=== PATIENT | female | born 1935 | race Caucasian/White ===

== ENCOUNTER 2016-10-30 11:37 | Inpatient (IN) | payer MEDICARE, OTHER ==
[~2016-10-30] VITALS: Ht 165.1 cm; Wt 90.7 kg
--- NOTE | 2016-10-30 12:00 | ED Fall/Injury ---
General Stated Complaint: FALL Source: patient, family Exam Limitations: no limitations History of Present Illness Time seen by provider: 11:56 Initial Comments Brought to ER by family after they found her on her floor in her apartment this morning at about 1030. Reportedly, she also fell last night and sustained an abrasion to the right elbow which was dressed by nurses on staff. She has advanced Alzheimer's and does not remember falling or recent injuries and states that she feels well. Family reports that she has been increasingly weak over the past few weeks. They also report that she's had 3 bottles of water this morning which is very unusual for her. She denies pain. Occurred: yesterday Severity: moderate Injuries/Pain Location: upper extremity Context: unknown Loss of Consciousness: unsure Associated Symptoms (Fall): No Abdominal Pain, No Chest Pain, No Dizziness, No Headache, No Nausea/Vomiting, No Neck Pain Allergies and Home Medications Allergies Coded Allergies: No Allergy Information Available (Unverified , 10/30/16) Home Medications Unable to Obtain Active Prescriptions or Reported Meds Constitutional: see HPI weakness Eyes: No Symptoms Reported Ears, Nose, Mouth, Throat: no symptoms reported Respiratory: no symptoms reported Cardiovascular: no symptoms reported Genitourinary: no symptoms reported Musculoskeletal: no symptoms reported Skin: no symptoms reported Past Qkydmui-Ekohdn-Nuvedd Hx Patient Social History Recent Foreign Travel: No Contact w/Someone Who Travel: No Physical Exam Vital Signs Vital Sign - Last 12Hours Capillary Refill : General Appearance: WD/WN no apparent distress HEENT: PERRL/EOMI normal ENT inspection Neck: non-tender full range of motion Cardiovascular: regular rate, rhythm no murmur Respiratory: lungs clear normal breath sounds no respiratory distress no accessory muscle use Gastrointestinal: normal bowel sounds non tender soft Extremities: normal range of motion non-tender no pedal edema pelvis stable Neurologic/Psychiatric: alert normal mood/affect oriented x 3 Skin: normal color warm/dry Fito Coma Score Best Eye Response: (4) Open Spontaneously Best Verbal Response: (4) Confused Conversation Best Motor Response: (6) Obeys Commands Fito Total: 14 Progress/Results/Core Measures Results/Orders Lab Results Laboratory Tests Test 10/30/16 11:51 Range/Units Alanine Aminotransferase (ALT/SGPT) 25 0-55 U/L Albumin 4.2 3.2-4.5 G/DL Alkaline Phosphatase 65 40-136 U/L Anion Gap 21 H 5-14 MMOL/L Aspartate Amino Transf (AST/SGOT) 52 H 5-34 U/L BUN/Creatinine Ratio 23 Basophils # (Auto) 0.0 0.0-0.1 10^3/uL Basophils (%) (Auto) 0 0-10 % Blood Morphology Comment NORMAL Blood Urea Nitrogen 25 H 7-18 MG/DL Calcium Level 9.4 8.5-10.1 MG/DL Carbon Dioxide Level 17 L 21-32 MMOL/L Chloride Level 99 98-107 MMOL/L Creatinine 1.08 0.60-1.30 MG/DL Eosinophils # (Auto) 0.0 0.0-0.3 10^3/uL Eosinophils (%) (Auto) 0 0-10 % Estimat Glomerular Filtration Rate 49 Glucose Level 309 H 70-105 MG/DL Hematocrit 46 35-52 % Hemoglobin 15.4 11.5-16.0 G/DL INR Comment 1.1 0.8-1.4 Lymphocytes # (Auto) 0.5 L 1.0-4.0 X 10^3 Lymphocytes % (Manual) 4 % Lymphocytes (%) (Auto) 4 L 12-44 % Mean Corpuscular Hemoglobin 29 25-34 PG Mean Corpuscular Hemoglobin Concent 34 32-36 G/DL Mean Corpuscular Volume 87 80-99 FL Mean Platelet Volume 9.7 7.4-10.4 FL Monocytes # (Auto) 1.0 0.0-1.0 X 10^3 Monocytes % (Manual) 7 % Monocytes (%) (Auto) 9 0-12 % Myoglobin 3056.1 H 10.0-92.0 NG/ML Neutrophils # (Auto) 9.9 H 1.8-7.8 X 10^3 Neutrophils % (Manual) 89 % Neutrophils (%) (Auto) 87 H 42-75 % Platelet Count 218 130-400 10^3/uL Potassium Level 4.3 3.6-5.0 MMOL/L Prothrombin Time 13.6 12.2-14.7 SEC Red Blood Count 5.23 4.35-5.85 10^6/uL Red Cell Distribution Width 13.9 10.0-14.5 % Sodium Level 137 135-145 MMOL/L Total Bilirubin 0.5 0.1-1.0 MG/DL Total Creatine Kinase 1605 H 29-168 U/L Total Protein 7.3 6.4-8.2 G/DL Urine Bacteria NEGATIVE /HPF Urine Bilirubin NEGATIVE NEGATIVE Urine Casts NONE /LPF Urine Clarity CLEAR Urine Color YELLOW Urine Crystals NONE /LPF Urine Culture Indicated NO Urine Glucose (UA) 4+ H NEGATIVE Urine Ketones 4+ H NEGATIVE Urine Leukocyte Esterase NEGATIVE NEGATIVE Urine Mucus NEGATIVE /LPF Urine Nitrite NEGATIVE NEGATIVE Urine Protein 3+ H NEGATIVE Urine RBC NONE /HPF Urine RBC (Auto) 5+ H NEGATIVE Urine Specific [place] 1.020 1.016-1.022 Urine Squamous Epithelial Cells 2-5 /HPF Urine Urobilinogen NORMAL NORMAL MG/DL Urine WBC NONE /HPF Urine pH 5 5-9 Valproic Acid (Depakene) Level 11.2 L 50.0-100.0 UG/ML White Blood Count 11.4 H 4.3-11.0 10^3/uL My Orders Orders-JAJA MAURICIO FRAMING SPECIALIST Cbc With Automated Diff (10/30/16 11:44) Comprehensive Metabolic Panel (10/30/16 11:44) Ua Culture If Indicated (10/30/16 11:44) Saline Lock/Iv-Start (10/30/16 11:56) Ct Head/Cervical Spine Wo (10/30/16 11:56) Chest Pa/Lat (2 View) (10/30/16 11:56) Protime With Inr (10/30/16 11:56) Creatine Kinase (10/30/16 12:00) Myoglobin Serum (10/30/16 12:00) Valproic Acid (10/30/16 12:01) Manual Differential (10/30/16 11:51) Ns Iv 500 Ml (Sodium Chloride 0.9%) (10/30/16 12:45) Insulin (Regular) Human (Humulin R (Per (10/30/16 12:45) Vital Signs/I&O Vital Sign - Last 12Hours 10/30/16 10/30/16 11:51 11:51 Temp 98.1 98.1 Pulse 92 91 Resp 18 18 B/P 132/114 132/114 Pulse Ox 94 94 Diagnostic Imaging Diagonstic Imaging: Xray Plain Films/CT/US/NM/MRI: chest Comments NAME: RAMOSCARL J MED REC#: [id number] PT STATUS: REG ER : 1935 PHYSICIAN: JAJA MAURICIO APRN ADMIT DATE: 10/30/16/ER Draft Date of Exam:10/30/16 CHEST PA/LAT (2 VIEW) INDICATION: Fall, assisted living facility. EXAMINATION: Two-view chest 10/30/2016. COMPARISON: None. FINDINGS: There are no infiltrates or effusions. Heart is unremarkable. Pulmonary vasculature is normal in appearance. IMPRESSION: 1. No acute process. Dictated on workstation # [id number] Dict: 10/30/16 1246 Trans: 10/30/16 1252 KB [id number] Interpreted by: LONNIE CMFARLAND MD Electronically signed by: NAME: CARL BEASLEY REC#: [id number] PT STATUS: REG ER : 1935 PHYSICIAN: JAJA MAURICIO APRN ADMIT DATE: 10/30/16/ER Draft Date of Exam:10/30/16 CT HEAD/CERVICAL SPINE WO PROCEDURE: CT head and CT cervical spine without contrast. TECHNIQUE: Multiple contiguous axial images were obtained through the brain and cervical spine without the use of intravenous contrast. Sagittal and coronal reformations through the cervical spine were then performed. INDICATION: Unsure if hit head, recent fall. Assisted living facility. EXAMINATION: CT brain/ CT cervical spine 10/30/2016. Correlation made with CT brain dated 04/02/2015. FINDINGS: Brain: Chronic ischemic changes are seen in a periventricular distribution and throughout the deep white matter. There is mild atrophy. 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 No definite hemorrhage, infarct, mass, mass effect, or midline shift is appreciated. No depressed or displaced calvarial fractures are seen. Mucosal thickening is seen in the sinuses with no acute sinus disease appreciated. IMPRESSION: Chronic change with no acute intracranial process appreciated. CT cervical spine: There is normal height and alignment of the vertebral bodies with intervertebral disc space narrowing and posterior as well as anterior spurring throughout the spine. Bilateral facet hypertrophy is also noted throughout the cervical spine. No acute fractures appreciated. Lung apices are clear. Visualized soft tissues demonstrate prominence and lobularity of the thyroid which should be further characterized sonographically on a nonemergent basis. IMPRESSION: 1. Degenerative findings throughout the cervical spine with no fracture seen. 2. Prominent thyroid gland. See above recommendation. Dictated on workstation # [id number] Dict: 10/30/16 1250 Trans: 10/30/16 1300 [id number] Interpreted by: LONNIE MCFARLAND MD Electronically signed by: Departure Communication Time/Spoke to Admitting Phy: 13:[address] Bourgeois who is on-call for Dr. Reddy. We will admit the patient for IV fluids, repeat labs. Impression Impression: Primary Impression: Rhabdomyolysis Qualified Code: T79.6XXA - Traumatic ischemia of muscle, initial encounter Additional Impressions: Fall Qualified Code: W19.XXXA - Unspecified fall, initial encounter Hyperglycemia Disposition: ADMITTED INPATIENT Condition: Critical Decision to Admit Reason: Admit from ER (General) Decision to Admit/Date: Oct 30, 2016 Time/Decision to Admit Time: 12:46 Departure-Patient Inst. Referrals: MANUEL REDDY MD (PCP/Family) Primary Care Physician Scripts Unable to Obtain Active Prescriptions or Reported Meds JAJA MAURICIO APRN Oct 30, 2016 12:00
[2016-10-30 12:20] LABS: BASOPHILS % (AUTO) 0 % (0-10); EOSINOPHILS % (AUTO) 0 % (0-10); LYMPHOCYTES # (AUTO) 0.5 X 10^3 (1.0-4.0); LYMPHOCYTES % (AUTO) 4 % (12-44); MEAN CORPUSCULAR HEMOGLOBIN 29 PG (25-34); MEAN CORPUSCULAR HGB CONC 34 G/DL (32-36); MEAN CORPUSCULAR VOLUME 87 FL (80-99); MEAN PLATELET VOLUME 9.7 FL (7.4-10.4); MONOCYTES % (AUTO) 9 % (0-12); NEUTROPHILS # (AUTO) 9.9 X 10^3 (1.8-7.8); NEUTROPHILS % (AUTO) 87 % (42-75); PLATELET COUNT 218 10^3/uL (130-400); RED BLOOD COUNT 5.23 10^6/uL (4.35-5.85); RED CELL DISTRIBUTION WIDTH 13.9 % (10.0-14.5); WHITE BLOOD COUNT 11.4 10^3/uL (4.3-11.0)
[2016-10-30 12:21] LABS: BILIRUBIN,URINE NEGATIVE (NEGATIVE); KETONES,URINE 4+ (NEGATIVE); LEUKOCYTE ESTERASE ,URINE NEGATIVE (NEGATIVE); NITRITE,URINE NEGATIVE (NEGATIVE); PH,URINE 5 (5-9); PROTEIN,URINE 3+ (NEGATIVE); UROBILINOGEN,URINE NORMAL (NORMAL)
[2016-10-30 12:29] LABS: INR 1.1 (0.8-1.4); PROTHROMBIN TIME PATIENT 13.6 SEC (12.2-14.7)
[2016-10-30 12:37] LABS: LYMPHOCYTES % (MANUAL) 4 %; NEUTROPHILS % (MANUAL) 89 %
[2016-10-30 12:38] LABS: ALBUMIN 4.2 G/DL (3.2-4.5); BILIRUBIN,TOTAL 0.5 MG/DL (0.1-1.0); CALCIUM 9.4 MG/DL (8.5-10.1); CREATININE SERUM 1.08 MG/DL (0.60-1.30); POTASSIUM 4.3 MMOL/L (3.6-5.0); TOTAL PROTEIN 7.3 G/DL (6.4-8.2)
[2016-10-30] MEDS ORDERED: NS IV 500 ML 500 ML IV SCH (12:45)
[2016-10-30] MEDS ORDERED: inSUlin (REGULAR) HUMAN 1 UNIT/0.01 ML (CHARGE PER UNIT) IV ONE (12:45)
--- NOTE | 2016-10-30 12:52 | Diagnostic Imaging Report ---
INDICATION: Fall, assisted living facility. EXAMINATION: Two-view chest 10/30/2016. COMPARISON: None. FINDINGS: There are no infiltrates or effusions. Heart is unremarkable. Pulmonary vasculature is normal in appearance. IMPRESSION: 1. No acute process. Dictated by: Dictated on workstation # [id number]
[2016-10-30 13:00] LABS: VALPROIC ACID 11.2 UG/ML (50.0-100.0)
[2016-10-30 13:01] LABS: MYOGLOBIN SERUM 3056.1 NG/ML (10.0-92.0)
--- NOTE | 2016-10-30 13:01 | Diagnostic Imaging Report ---
PROCEDURE: CT head and CT cervical spine without contrast. TECHNIQUE: Multiple contiguous axial images were obtained through the brain and cervical spine without the use of intravenous contrast. Sagittal and coronal reformations through the cervical spine were then performed. INDICATION: Unsure if hit head, recent fall. Assisted living facility. EXAMINATION: CT brain/ CT cervical spine 10/30/2016. Correlation made with CT brain dated 04/02/2015. FINDINGS: Brain: Chronic ischemic changes are seen in a periventricular distribution and throughout the deep white matter. There is mild atrophy. 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 No definite hemorrhage, infarct, mass, mass effect, or midline shift is appreciated. No depressed or displaced calvarial fractures are seen. Mucosal thickening is seen in the sinuses with no acute sinus disease appreciated. IMPRESSION: Chronic change with no acute intracranial process appreciated. CT cervical spine: There is normal height and alignment of the vertebral bodies with intervertebral disc space narrowing and posterior as well as anterior spurring throughout the spine. Bilateral facet hypertrophy is also noted throughout the cervical spine. No acute fractures appreciated. Lung apices are clear. Visualized soft tissues demonstrate prominence and lobularity of the thyroid which should be further characterized sonographically on a nonemergent basis. IMPRESSION: 1. Degenerative findings throughout the cervical spine with no fracture seen. 2. Prominent thyroid gland. See above recommendation. Dictated by: Dictated on workstation # [id number]
[2016-10-30 14:29] LABS: THYROID STIMULATING HORMONE 0.6 UIU/ML (0.35-4.94)
[2016-10-30] MEDS ORDERED: NS IV 1000 ML 1,000 ML IV SCH ×2 (14:30→16:15)
[2016-10-30] MEDS ORDERED: CATHETER FLUSH 10 ML SYR IV PRN (14:30)
--- NOTE | 2016-10-30 15:01 | History & Physicial ---
History of Present Illness History of Present Illness Reason for visit/HPI patient has a history of Alzheimer's. Patient short-term memory loss. Patient was found on floor in her apartment last night and also this morning. Patient fell during the night and sustained a bruise of the right elbow. History by son son also states that mother has pain in the ribs now. Patient lives at [facility] [place]. Patient found sweaty and clammy Date of Admission Oct 30, 2016 at 12:45 I consulted on this patient on 10/30/16 14:58 Attending Physician Sonal Reddy MD Admitting Physician Sonal Reddy MD Consult Allergies and Home Medications Allergies Coded Allergies: No Allergy Information Available (Unverified , 10/30/16) Home Medications Unable to Obtain Active Prescriptions or Reported Meds Past Hgoiedk-Vjyrxm-Cudhsb Hx Patient Social History Alcohol Use: Denies Use Recreational Drug Use: No Smoking Status: Never a Smoker Physical Abuse Screen: No Sexual Abuse: No Recent Foreign Travel: No Contact w/other who traveled: No Recent Hopitalizations: No Recent Infectious Disease Expo: No Immunizations Up To Date Tetanus Booster (TDap): Unknown Seasonal Allergies Seasonal Allergies: No Cardiovascular Hx Cardiovascular Disorders: Yes Cardiac Disorders: Hypertension Neurological Hx Neurological Disorders: Yes Neurological Disorders: Dementia Endocrine Hx Endocrine Disorders: Yes Endocrine Disorders: Diabetes, Non-Insulin dep Constitutional: malaise weakness EENTM: no symptoms reported Respiratory: other (pain) Cardiovascular: no symptoms reported Gastrointestinal: no symptoms reported Genitourinary: no symptoms reported Physical Exam Vital Signs Vital Sign - Last 12Hours Capillary Refill : Less Than 3 Seconds General Appearance: No Apparent Distress WD/WN Other (pain to touch ribs) Eyes: Bilateral Eye Normal Inspection HEENT: Normal ENT Inspection Neck: Normal Inspection Respiratory: Chest Non Tender Lungs Clear No Accessory Muscle Use No Respiratory Distress Cardiovascular: Regular Rate, Rhythm No Murmur Gastrointestinal: Non Tender Soft Assessment/Plan Assessment and Plan rhabdomyolysis. Hypoglycemia. Alzheimer's. Falling HANNA CAMPUZANO DO Oct 30, 2016 15:01
[2016-10-30] MEDS ORDERED: inSUlin (REGULAR) HUMAN 1 UNIT/0.01 ML (CHARGE PER UNIT) SC SCH (16:00)
[2016-10-30 16:52] VITALS: BP 111/63
[2016-10-30] MEDS: ACETAMINOPHEN 325 MG TABLET/CAPLET (TYLENOL) PO PRN (16:55)
[2016-10-30] MEDS: inSUlin (REGULAR) HUMAN 1 UNIT/0.01 ML (CHARGE PER UNIT) SC SCH ×2 (17:03→22:16)
[2016-10-30] MEDS: NS IV 1000 ML 1,000 ML IV SCH (17:34)
[2016-10-30] MEDS: SPIRONOLACTONE 25 MG (ALDACTONE) TAB PO SCH (17:39)
[2016-10-30] MEDS: metFORMIN 500 MG (GLUCOPHAGE) TAB PO SCH (17:39)
[2016-10-30 18:19] LABS: CALCIUM 8.8 MG/DL (8.5-10.1); CREATININE SERUM 0.91 MG/DL (0.60-1.30); POTASSIUM 3.5 MMOL/L (3.6-5.0)
[2016-10-30 18:42] LABS: MYOGLOBIN SERUM 1151.7 NG/ML (10.0-92.0)
--- NOTE | 2016-10-30 19:17 | Diagnostic Imaging Report ---
EXAMINATION: RIBS, 4 views. COMPARISON: None. HISTORY: 81-year-old female status post fall. Right greater than left rib pain. FINDINGS: There is no identified significantly displaced rib fracture. There is no identified pneumothorax or pleural effusion. IMPRESSION: No identified displaced rib fracture. Dictated by: Dictated on workstation # [id number]
--- NOTE | 2016-10-30 19:19 | Diagnostic Imaging Report ---
INDICATION: Fall. COMPARISON: None FINDINGS: Single lateral view of the soft tissue of the neck is obtained. The airway appears patent. The epiglottis appears normal. There is no widening of the prevertebral soft tissues. There are degenerative changes in the cervical spine with disc space narrowing and spurring. No acute fracture is suspected. IMPRESSION: No acute abnormality is seen. There are degenerative changes in the cervical spine. Dictated by: Dictated on workstation # [id number]
[2016-10-30 20:54] VITALS: BP 127/58
[2016-10-30] MEDS ORDERED: DIVALPROEX 250 MG DELAYED RELEASE (DEPAKOTE) TAB PO SCH (21:00)
[2016-10-30] MEDS ORDERED: DORZOLAMIDE/TIMOLOL (COSOPT) 2-0.5% 10 ML BTL OU SCH ×2 (21:00)
[2016-10-30] MEDS: FLUTICASONE NASAL SPRAY (FLONASE) 16 GM BTL NS SCH (22:14)
[2016-10-30] MEDS: TIMOLOL MALEATE 0.5% 5 ML (TIMOPTIC) BTL OU SCH (22:15)
[2016-10-30] MEDS: DONEPEZIL 10 MG (ARICEPT) TAB PO SCH (22:15)
[2016-10-30] MEDS: DIVALPROX SPRINKLE 125 MG (DEPAKOTE) CAP PO SCH (22:15)
[2016-10-30] MEDS: DORZOLAMIDE 2% 10 ML BTL (TRUSOPT) OU SCH (22:15)
[2016-10-30] MEDS: ENOXAPARIN 40 MG/0.4 ML (LOVENOX) SYR SC SCH (22:15)
[2016-10-30] MEDS: MEMANTINE 10 MG (NAMENDA) TABLET PO SCH (22:15)
[2016-10-31] VITALS: BP 158/79
[2016-10-31] MEDS: ACETAMINOPHEN 325 MG TABLET/CAPLET (TYLENOL) PO PRN ×2 (01:43→18:45)
[2016-10-31] MEDS: NS IV 1000 ML 1,000 ML IV SCH ×2 (03:06→15:36)
[2016-10-31 04:00] VITALS: BP 153/91
[2016-10-31 04:53] LABS: MEAN PLATELET VOLUME 9.5 FL (7.4-10.4); RED BLOOD COUNT 4.51 10^6/uL (4.35-5.85); WHITE BLOOD COUNT 6.6 10^3/uL (4.3-11.0)
[2016-10-31 05:13] LABS: ALANINE AMINOTRANSFERASE 25 U/L (0-55); ALBUMIN 3.4 G/DL (3.2-4.5); ANION GAP 14 MMOL/L (5-14); ASPARTATE AMINO TRANSFERASE 53 U/L (5-34); BILIRUBIN,TOTAL 0.4 MG/DL (0.1-1.0); BLOOD UREA NITROGEN 29 MG/DL (7-18); BUN/CREATININE RATIO 37; CALCIUM 8.5 MG/DL (8.5-10.1); CARBON DIOXIDE 16 MMOL/L (21-32); CHLORIDE 107 MMOL/L (98-107); CREATINE KINASE 1384 U/L (29-168); CREATININE SERUM 0.79 MG/DL (0.60-1.30); GFR ESTIMATED > 60; GLUCOSE 191 MG/DL (70-105); MAGNESIUM 1.5 MG/DL (1.8-2.4); POTASSIUM 3.6 MMOL/L (3.6-5.0); SODIUM 137 MMOL/L (135-145); TOTAL PROTEIN 5.6 G/DL (6.4-8.2)
[2016-10-31] MEDS: inSUlin (REGULAR) HUMAN 1 UNIT/0.01 ML (CHARGE PER UNIT) SC SCH ×4 (06:00→22:40)
[2016-10-31] MEDS: metFORMIN 500 MG (GLUCOPHAGE) TAB PO SCH ×2 (07:58→18:42)
[2016-10-31] MEDS: MULTIVIT W/MINERALS TAB (THERAGRAN M) PO SCH (07:58)
[2016-10-31 08:00] VITALS: BP 119/86
[2016-10-31] MEDS ORDERED: FARXIGA 5 MG PO SCH (09:00)
[2016-10-31] MEDS ORDERED: MEMANTINE 5 MG (NAMENDA) TABLET PO SCH (09:00)
[2016-10-31] MEDS ORDERED: PATIENT MAY USE OWN MED,SINGLE MED PO SCH (09:00)
[2016-10-31] MEDS ORDERED: NON-FORMULARY MEDICATION 1 EA EA PO SCH (09:00)
--- NOTE | 2016-10-31 09:36 | Progress Note (SOAP) ---
Subjective Subjective/Events-last exam according to the son patient is weak. Patient not eating is much Patient has been shaking her upper right extremity and shuffling her feet when she walks and unable to picker tender legs. Patient may have Parkinson's disease and put on Sinemet.. Patient needs physical therapy and long term care social worker involved Objective Exam Vital Signs Date Time Temp Pulse Resp B/P Pulse Ox O2 Delivery O2 Flow Rate FiO2 10/31/16 04:00 99.5 87 18 153/91 94 Room Air 10/31/16 00:00 99.0 82 18 158/79 94 Room Air 10/30/16 21:00 Room Air 10/30/16 20:54 98.3 71 18 127/58 93 Room Air 10/30/16 16:52 98.3 80 18 111/63 93 Room Air 10/30/16 14:01 97.5 80 18 95 10/30/16 11:51 98.1 91 18 132/114 94 10/30/16 11:51 98.1 92 18 132/114 94 I & O 10/31/16 07:00 Intake Total 1740 ml Output Total 850 ml Balance 890 ml Capillary Refill : Less Than 3 Seconds General Appearance: No Apparent Distress WD/WN HEENT: Normal ENT Inspection Neck: Normal Inspection Respiratory: Chest Non Tender Lungs Clear Normal Breath Sounds No Accessory Muscle Use No Respiratory Distress Cardiovascular: Regular Rate, Rhythm No Murmur Gastrointestinal: soft Results Lab rhabdomyolysisLaboratory Tests 10/30/16 11:51 10/30/16 17:50 10/31/16 04:37 Laboratory Tests 10/30/16 11:51: Alanine Aminotransferase (ALT/SGPT) 25, Albumin 4.2, Alkaline Phosphatase 65, Anion Gap 21H, Aspartate Amino Transf (AST/SGOT) 52H, BUN/Creatinine Ratio 23, Basophils # (Auto) 0.0, Basophils (%) (Auto) 0, Blood Morphology Comment NORMAL , Blood Urea Nitrogen 25H, Calcium Level 9.4, Carbon Dioxide Level 17L, Chloride Level 99, Creatinine 1.08, Eosinophils # (Auto) 0.0, Eosinophils (%) ( Auto) 0, Estimat Glomerular Filtration Rate 49, Glucose Level 309H, Hematocrit 46, Hemoglobin 15.4, INR Comment 1.1, Lymphocytes # (Auto) 0.5L, Lymphocytes % ( Manual) 4, Lymphocytes (%) (Auto) 4L, Mean Corpuscular Hemoglobin 29, Mean Corpuscular Hemoglobin Concent 34, Mean Corpuscular Volume 87, Mean Platelet Volume 9.7, Monocytes # (Auto) 1.0, Monocytes % (Manual) 7, Monocytes (%) (Auto ) 9, Myoglobin 3056.1H, Neutrophils # (Auto) 9.9H, Neutrophils % (Manual) 89, Neutrophils (%) (Auto) 87H, Platelet Count 218, Potassium Level 4.3, Prothrombin Time 13.6, Red Blood Count 5.23, Red Cell Distribution Width 13.9, Sodium Level 137, Total Bilirubin 0.5, Total Creatine Kinase 1605H, Total Protein 7.3, Urine Bacteria NEGATIVE, Urine Bilirubin NEGATIVE, Urine Casts NONE , Urine Clarity CLEAR, Urine Color YELLOW, Urine Crystals NONE, Urine Culture Indicated NO, Urine Glucose (UA) 4+H, Urine Ketones 4+H, Urine Leukocyte Esterase NEGATIVE, Urine Mucus NEGATIVE, Urine Nitrite NEGATIVE, Urine Protein 3 +H, Urine RBC NONE, Urine RBC (Auto) 5+H, Urine Specific [place] 1.020, Urine Squamous Epithelial Cells 2-5, Urine Urobilinogen NORMAL, Urine WBC NONE, Urine pH 5, Valproic Acid (Depakene) Level 11.2L, White Blood Count 11.4H 10/30/16 12:05: Hemoglobin A1c 9.1H 10/30/16 13:33: Free Thyroxine 1.00, Thyroid Stimulating Hormone (TSH) 0.60 10/30/16 15:53: Glucometer 234H 10/30/16 17:50: Anion Gap 16H, BUN/Creatinine Ratio 32, Blood Urea Nitrogen 29H, Calcium Level 8.8, Carbon Dioxide Level 16L, Chloride Level 104, Creatinine 0.91, Estimat Glomerular Filtration Rate 60, Glucose Level 245H, Myoglobin 1151.7H, Potassium Level 3.5L, Sodium Level 136, Total Creatine Kinase 1531H 10/30/16 20:16: Glucometer 212H 10/30/16 21:35: Glucometer 181H 10/31/16 04:37: Anion Gap 14, BUN/Creatinine Ratio 37, Blood Urea Nitrogen 29H, Calcium Level 8.5, Carbon Dioxide Level 16L, Chloride Level 107, Creatinine 0.79, Estimat Glomerular Filtration Rate > 60, Glucose Level 191H, Myoglobin 439.0H, Potassium Level 3.6, Sodium Level 137, Total Creatine Kinase 1384H, Alanine Aminotransferase (ALT/SGPT) 25, Albumin 3.4, Alkaline Phosphatase 50, Aspartate Amino Transf (AST/SGOT) 53H, Hematocrit 39, Hemoglobin 13.3, Magnesium Level 1.5L, Mean Corpuscular Hemoglobin 30, Mean Corpuscular Hemoglobin Concent 34, Mean Corpuscular Volume 87, Mean Platelet Volume 9.5, Platelet Count 163, Red Blood Count 4.51, Red Cell Distribution Width 14.0, Total Bilirubin 0.4, Total Protein 5.6L, White Blood Count 6.6 Assessment/Plan Assessment/Plan Assess & Plan/Chief Complaint 10/31/16 rhabdomyolysis. Hyperglycemia. Weakness. Parkinson disease. Patient needing physical therapy. Patient not eating as she usually does according to family Diagnosis/Problems: Clinical Quality Measures DVT/VTE Risk/Contraindication: Risk Factor Score Per Nursin RFS Level Per Nursing on Admit: 4+=Very High HANNA CAMPUZANO DO Oct 31, 2016 09:36
[2016-10-31] MEDS: FLUTICASONE NASAL SPRAY (FLONASE) 16 GM BTL NS SCH ×2 (10:06→22:40)
[2016-10-31] MEDS: TIMOLOL MALEATE 0.5% 5 ML (TIMOPTIC) BTL OU SCH ×2 (10:07→22:40)
[2016-10-31] MEDS: DORZOLAMIDE 2% 10 ML BTL (TRUSOPT) OU SCH ×2 (10:07→22:40)
[2016-10-31] MEDS: ASPIRIN 325 MG (5 GR) TABLET PO SCH (10:08)
[2016-10-31] MEDS: MEMANTINE 10 MG (NAMENDA) TABLET PO SCH ×2 (10:08→22:41)
[2016-10-31 12:00] VITALS: BP 147/82
[2016-10-31] MEDS: SINEMET 25/100 (CARBIDOPA/LEVODOPA) TAB PO SCH ×2 (12:05→18:42)
[2016-10-31 15:51] VITALS: BP 165/92
--- NOTE | 2016-10-31 16:27 | Diagnostic Imaging Report ---
INDICATION: Pneumonia. EXAMINATION: Portable chest was obtained at 4:20 p.m. FINDINGS: Heart and mediastinum are normal. The lungs are clear. There are no effusions or pneumothoraces. IMPRESSION: Negative chest. Dictated by: Dictated on workstation # [id number]
[2016-10-31] MEDS: SPIRONOLACTONE 25 MG (ALDACTONE) TAB PO SCH (18:42)
[2016-10-31 19:53] VITALS: BP 120/79
[2016-10-31] MEDS ORDERED: cefTRIAXone 1 GM (ROCEPHIN) VIAL ONE (21:50)
[2016-10-31] MEDS ORDERED: NORMAL SALINE (BAXTER MINI) 50 ML IV ONE (21:51)
[2016-10-31] MEDS: DIVALPROX SPRINKLE 125 MG (DEPAKOTE) CAP PO SCH (22:41)
[2016-10-31] MEDS: HYDROcodone/APAP 5 MG/325 MG (LORTAB) TAB PO PRN (22:41)
[2016-10-31] MEDS: DONEPEZIL 10 MG (ARICEPT) TAB PO SCH (22:41)
[2016-10-31] MEDS: ENOXAPARIN 40 MG/0.4 ML (LOVENOX) SYR SC SCH (22:42)
[2016-10-31] MEDS: cefTRIAXone INJECTION 1,000 MG in NORMAL SALINE (BAXTER MINI) 50 ML IV SCH (22:42)
[2016-11-01 00:21] VITALS: BP 141/75
[2016-11-01 03:15] VITALS: BP 146/81
[2016-11-01] MEDS: NS IV 1000 ML 1,000 ML IV SCH ×2 (04:03→18:04)
[2016-11-01] MEDS: inSUlin (REGULAR) HUMAN 1 UNIT/0.01 ML (CHARGE PER UNIT) SC SCH ×4 (06:00→21:00)
[2016-11-01 06:24] LABS: MEAN PLATELET VOLUME 9.6 FL (7.4-10.4); RED BLOOD COUNT 4.62 10^6/uL (4.35-5.85); RED CELL DISTRIBUTION WIDTH 14.3 % (10.0-14.5)
[2016-11-01 06:44] LABS: ALANINE AMINOTRANSFERASE 14 U/L (0-55); ALBUMIN 3.4 G/DL (3.2-4.5); ANION GAP 14 MMOL/L (5-14); ASPARTATE AMINO TRANSFERASE 54 U/L (5-34); BILIRUBIN,TOTAL 0.3 MG/DL (0.1-1.0); BLOOD UREA NITROGEN 18 MG/DL (7-18); BUN/CREATININE RATIO 26; CALCIUM 8.4 MG/DL (8.5-10.1); CARBON DIOXIDE 17 MMOL/L (21-32); CHLORIDE 106 MMOL/L (98-107); CREATINE KINASE 849 U/L (29-168); CREATININE SERUM 0.69 MG/DL (0.60-1.30); GFR ESTIMATED > 60; GLUCOSE 120 MG/DL (70-105); POTASSIUM 3.5 MMOL/L (3.6-5.0); SODIUM 137 MMOL/L (135-145); TOTAL PROTEIN 6.1 G/DL (6.4-8.2)
[2016-11-01 06:50] LABS: MYOGLOBIN SERUM 303.3 NG/ML (10.0-92.0)
[2016-11-01 08:25] VITALS: BP 142/76
--- NOTE | 2016-11-01 09:26 | Physical Therapy Evaluation ---
PT Evaluation-General Medical Diagnosis Admission Date Oct 30, 2016 at 12:45 Medical Diagnosis: Rhabdomyolysis Onset Date: Oct 27, 2016 Therapy Diagnosis Therapy Diagnosis: severe weakness and debility Height/Weight Height (Feet): 5 Height (Inches): 5.00 Weight (Pounds): 200 Weight (Ounces): 0.0 Precautions Precautions/Isolations: Fall Prevention, Standard Precautions Referral Physician: Bk Reason for Referral: Evaluation/Treatment Medical History Pertinent Medical History: DM, Dementia, HTN, Parkinson's Additional Medical History multiple falls [place] at [facility] Current History found on floor by family on right side. Reviewed History: Yes Social History Home: Assisted Living Entry Into Home: Level Entry Prior/Core FIM Prior Level of Function Functional Banks Measure 0=Not Assessed/NA 4=Minimal Assistance 1=Total Assistance 5=Supervision or Setup 2=Maximal Assistance 6=Modified Banks 3=Moderate Assistance 7=Complete Banks Bed Mobility: 5 Transfers (B,C,W/C) (FIM): 5 Gait: 2 (per family, patient was beginnng to use FWW) PT Evaluation-Current Subjective Patient is in bed on 3L O2 NC and family present. Patient is confused. Pain Numeric Pain Scale: 5-Moderate Pain Location: Right Location Body Site: Arm Comment: FLACC Pt/Family Goals skilled [place] Objective Patient Orientation: Confused Problem Solving: Poor Attachments: Oxygen, IV ROM/Strength ROM Lower Extremities bilateral LE WFL Strenght Lower Extremities left LE 3+/5 knee flexion and extension/ankle dorsiflexion/plantarflexion right LE 3-/5 knee flexion/extension; ankle dorsi/plantarflexion Integumentary/Posture Integumentary refer to nursing notes Bowel Incontinence: No Bladder Incontinence: No Posture WNL in sit and stand with assistance Neuromuscular (Tone, Coordination, Reflexes) noted right hand tremor from Parkinson's; diminished coordination with gross motor ROM and MMT Sensory Vision: Functional Hearing: Impaired Sensation Right Lower Extremit: Impaired Sensation Left Lower Extremity: Impaired Transfers Functional Banks Measure 0=Not Assessed/NA 4=Minimal Assistance 1=Total Assistance 5=Supervision or Setup 2=Maximal Assistance 6=Modified Banks 3=Moderate Assistance 7=Complete Banks Transfers (B, C, W/C) (FIM): 1 Scootin Rollin Supine to/from Sit: 1 Sit to/from Stand: 1 bed t/f WC(FIM only if WC use): 1 dependent assist with all transfers/bed mobility; Patient demonstrates difficulty initiating gross motor movements Gait Mode of Locomotion: Both Anticipated Mode of Locomotion: Both Gait (FIM): 1 Distance (FIM): 1=up to 49 ft Distance: 3' Gait Level of Assist: 1 Gait Persons Needed: 2 Gait Assistive Device: None Comments/Gait Description Patient is slightly retropulsive in sit and stand. Attempted to take 3 steps bed to recliner, however, unable to safely perform requiring dependent assist to complete task. Stairs Stairs (FIM): 0 unsafe to perform task due to severe weakness Balance Sitting Static: Poor Sitting Dynamic: Poor Standing Static: Poor Standing Dynamic: Poor Assessment/Needs 81 y.o. female, will benefit from skilled PT to address functional strength and mobility to improve current LOF and safety awareness. Patient is limited in all gross motor activities. Rehab Potential: Fair Post Rehab Potential-Barriers: advanced alzheimers PT Skilled Nursing Goals Spare Hand Carding Goals PT Spare Hand Carding Goals Time Frame: Nov 08, 2016 Transfers (B,C,W/C) (FIM): 3 Gait (FIM): 1 Gait distance (FIM): 1=up to 49 ft (24) Distance: 25' Gait Level of Assist: 3 Gait Assistive Device: FWW PT Plan Problem List Problem List: Activity Tolerance, Functional Strength, Safety, Balance, Gait, Transfer, Bed Mobility Treatment/Plan Treatment Plan: Continue Plan of Care Treatment Plan: Bed Mobility, Education, Functional Activity Jelani, Functional Strength, Gait, Safety, Therapeutic Exercise, Transfers Treatment Duration: Nov 08, 2016 # of days/week 6 Visits Per Week: 6 Pt/Family Agrees w/Plan: Yes Safety Risks/Education Patient Education: Transfer Techniques, Safety Issues Teaching Recipient: Patient, Family Teaching Methods: Demonstration, Discussion Response to Teaching: Reinforcement Needed Discharge Recommendations Therapy D/C Recommendations: Half-Way Placement Discharge Status/Home Program Patient and family plan to dismiss to NH for continued care. Barriers to Progress Alzheimer's, DM, Parkinson's Time/GCodes Time In: 850 Time Out: 920 Total Billed Treatment Time: 30 Total Billed Treatment 1 visit [facility] 30 min ANTON SHERIFF PT Nov 01, 2016 09:26
--- NOTE | 2016-11-01 10:42 | Progress Note (SOAP) ---
Subjective Subjective/Events-last exam PT IS A 81 Y/O FEMALE WHO IS KNOWN TO ME FROM CLINIC. PER HER DAUGHTER'S REPORT - HER MOM WAS FOUND IN HER ASSISTED LIVING APARTMENT AROUND 10AM UNRESPONSIVE. SHE IS NOT SURE HOW LONG SHE WAS DOWN AND NOT RESPONSIVE/STUCK ON THE FLOOR - HOWEVER THE LAST KNOWN WELL TIME WAS AFTER SUPPER THE NIGHT BEFORE WHICH IS SERVED AROUND 4:30-5PM AT HER ASSISTED LIVING APARTMENT. SHE USUALLY TAKES BREAKFAST IN HER APARTMENT AND GETS HER MEDS AT 0800, BUT HER MORNING MEDS HAD NOT YET BEEN ADMINISTERED BY THE TIME SHE WAS FOUND DOWN AT 1000 ON THE DAY OF ADMISSION. THE PATIENT STATES THIS MORNING THAT SHE IS FEELING FATIGUED. Review of Systems General: Fatigue Malaise HEENT: No Head Aches Pulmonary: No Dyspnea, Cough (PAIN WITH COUGHING ON THE RIGHT SIDE) Cardiovascular: No: Chest Pain, Palpitations Gastrointestinal: : Abdominal Pain (FROM BRUISED ABDOMEN): Other (DAUGHTER IS UNSURE OF HER LAST BOWEL MOVEMENT)No: Nausea Neurological: : Confusion: Weakness Objective Exam Vital Signs Date Time Temp Pulse Resp B/P Pulse Ox O2 Delivery O2 Flow Rate FiO2 11/01/16 09:44 90 Nasal Cannula 3.00 11/01/16 08:25 98.6 76 18 142/76 95 Nasal Cannula 3.00 11/01/16 03:15 98.9 78 20 146/81 94 Nasal Cannula 3.00 11/01/16 00:21 98.3 75 18 141/75 94 Room Air 10/31/16 20:30 90 Room Air 10/31/16 19:53 100.5 79 18 120/79 89 Room Air 10/31/16 17:00 94 10/31/16 16:44 96 Room Air 10/31/16 15:51 99.0 92 18 165/92 89 Room Air 10/31/16 12:00 100.0 93 20 147/82 88 Room Air I & O 11/01/16 07:00 Intake Total 1760 ml Output Total 2225 ml Balance -465 ml Capillary Refill : Less Than 3 Seconds General Appearance: WD/WN Neck: Supple Respiratory: Chest Non Tender Crackles (BILATERAL BASES) Decreased Breath Sounds Cardiovascular: Regular Rate, Rhythm Gastrointestinal: normal bowel sounds non tender soft no organomegaly no pulsatile mass Extremity: Pedal Edema Neurologic/Psychiatric: Depressed Affect Other (GROGGY - AWAKENS TO VOICE) Skin: Warm/Dry Other (BRUISING ON KNEES, ABDOMEN, ARMS) Lymphatic: No Adenopathy Results Lab Laboratory Tests 10/31/16 11:22: Glucometer 218H 10/31/16 16:13: Glucometer 208H 10/31/16 21:47: Glucometer 114H 11/01/16 05:35: Alanine Aminotransferase (ALT/SGPT) 14, Albumin 3.4, Alkaline Phosphatase 47, Anion Gap 14, Aspartate Amino Transf (AST/SGOT) 54H, BUN/Creatinine Ratio 26, Blood Urea Nitrogen 18, Calcium Level 8.4L, Carbon Dioxide Level 17L, Chloride Level 106, Creatinine 0.69, Estimat Glomerular Filtration Rate > 60, Glucose Level 120H, Hematocrit 41, Hemoglobin 13.4, Mean Corpuscular Hemoglobin 29, Mean Corpuscular Hemoglobin Concent 33, Mean Corpuscular Volume 88, Mean Platelet Volume 9.6, Myoglobin 303.3H, Platelet Count 154, Potassium Level 3.5L , Red Blood Count 4.62, Red Cell Distribution Width 14.3, Sodium Level 137, Total Bilirubin 0.3, Total Creatine Kinase 849H, Total Protein 6.1L, White Blood Count 6.0 11/01/16 06:14: Glucometer 115H Assessment/Plan Assessment/Plan Assess & Plan/Chief Complaint RHABDOMYOLYSIS FALL AT ASSISTED LIVING FACILITY DIABETES MELLITUS DEMENTIA RHABDOMYOLYSIS DUE TO FALL AT ASSISTED LIVING FACILITY - CONTINUE WITH IV FLUIDS AND SUPPORTIVE CARE, FOLLOW SERIAL LABS TO ASSURE CONTINUED IMPROVEMENT IN HER SYMPTOMS. DM - UNCONTROLLED WITH HGBA1C AT 9.1 - START ON LEVEMIR, SLIDING SCALE DEMENTIA - RESTARTED MEDS. PLANNING ON DISCHARGE TO [facility] ON DISCHARGE, CONTINUE WITH PHYSICAL THERAPY. Diagnosis/Problems: Clinical Quality Measures DVT/VTE Risk/Contraindication: Risk Factor Score Per Nursin RFS Level Per Nursing on Admit: 4+=Very High MANUEL GAITAN MD Nov 01, 2016 10:42
[2016-11-01] MEDS ORDERED: POLYETHYLENE GLYCOL 17 GM (MIRALAX) PACK PO NR (11:02)
[2016-11-01] MEDS ORDERED: cefTRIAXone 1 GM (ROCEPHIN) VIAL ONE (11:05)
[2016-11-01] MEDS ORDERED: NORMAL SALINE (BAXTER MINI) 50 ML IV ONE (11:06)
[2016-11-01] MEDS: MULTIVIT W/MINERALS TAB (THERAGRAN M) PO SCH (11:32)
[2016-11-01] MEDS: ASPIRIN 325 MG (5 GR) TABLET PO SCH (11:32)
[2016-11-01] MEDS: HYDROcodone/APAP 5 MG/325 MG (LORTAB) TAB PO PRN ×2 (11:32→17:59)
[2016-11-01] MEDS: TIMOLOL MALEATE 0.5% 5 ML (TIMOPTIC) BTL OU SCH ×2 (11:33→22:18)
[2016-11-01] MEDS: FLUTICASONE NASAL SPRAY (FLONASE) 16 GM BTL NS SCH ×2 (11:33→22:17)
[2016-11-01] MEDS: cefTRIAXone INJECTION 1,000 MG in NORMAL SALINE (BAXTER MINI) 50 ML IV SCH (11:33)
[2016-11-01] MEDS: MEMANTINE 10 MG (NAMENDA) TABLET PO SCH ×2 (11:33→22:17)
[2016-11-01] MEDS: SINEMET 25/100 (CARBIDOPA/LEVODOPA) TAB PO SCH ×3 (11:33→17:58)
[2016-11-01] MEDS: DORZOLAMIDE 2% 10 ML BTL (TRUSOPT) OU SCH ×2 (11:34→22:18)
[2016-11-01 12:11] VITALS: BP 147/68
[2016-11-01 15:52] VITALS: BP 141/82
--- NOTE | 2016-11-01 16:16 | Occupational Therapy Eval ---
OT Evaluation-General/PLF Medical Diagnosis Admission Date Oct 30, 2016 at 12:45 Medical Diagnosis: Rhabdomyolysis, pneumonia Onset Date: Oct 27, 2016 Therapy Diagnosis Therapy Diagnosis: decreased self care, decreased mobility, weakness Height/Weight Height (Feet): 5 Height (Inches): 5.00 Weight (Pounds): 200 Weight (Ounces): 0.0 Precautions Precautions/Isolations: Fall Prevention, Standard Precautions Safety Interventions: Reorient-PRN Referral Physician: Bk Referral Reason: Evaluation/Treatment Medical History Pertinent Medical History: DM, Dementia, HTN, Parkinson's (new dx) Additional Medical History New dx Parkinson's (have been watching it and now treating it). Advanced Alzheimers Current History Two falls in Assisted [facility] [place] [facility] Found on floor of apartment in evening, then between bed and furniture in am, per daughter's report. Hypoglycemia Reviewed History: Yes Social History Home: Assisted Living Current Living Status: Alone Entry Into Home: Level Entry ADL-Prior Level of Function ADL PLOF Comments Patient's daughter reported that her mother has declined in the past several months. Now she needs setup for eating, cueing and setup for grooming, including brushing teeth and hair, help with upper body dressing (probably mod assist), help with lower body dressing (unable to do shoes, socks, pull pants up ). She is continent but needs help with toilet transfers (mod A), help managing clothing and hygiene. They do her bath. She has started using a FWW but often walks off without it. She has forgotten how to operate her lift chair and the call button. She used to watch TV, nedra and read but now isn't able to do those things due to decreased memory. 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 Pt reported rib pain but was unable to rate or describe it Appearance Alert, confused. Able to give but not current location or year Mental Status/Objective Attachments: IV, Oxygen Current Hand Dominance: Right Upper Extremity ROM Pt with difficultly following directions for ROM. Shoulder flex limited to about 40 degrees active on R, 90 degrees passive. L shoulder flex about 80 degrees active. Unable to test rest of UE Upper Extremity Strength Unable to follow directions for muscle testing. Uses L UE for drinking water but not using R UE much. ADL-Treatment ADL-Current Pt needed mod assist to get drink of water to mouth, using straw. Help to brush hair. Unable to wipe after toileting. Required two people to transfer her on and off BSC, mod assist, shuffling gait, cues to move feet. 2 people to get her in and out of bed Functional [place] Measure 0=Not Assessed/NA 4=Minimal Assistance 1=Total Assistance 5=Supervision or Setup 2=Maximal Assistance 6=Modified [place] 3=Moderate Assistance 7=Complete IndependenceIRFPAI Quality Coding Scale 6 Independent with activity with or without an assistive device 5 Patient requires set up or clean up by helper. Patient completes activity by themselves 4 Supervision or touching assist (CGA). [place] provide cues , steadying assist 3 The helper provides less than half the effort to complete the activity 2 The helper provides more than half the effort to complete the activity 1 Dependent. The helper does all the effort to complete an activity 7 Patient refused to complete or attempt activity 9 The patient did not perform the activity before the current illness or injury 88 Not attempted due to Medical conditions or safety concerns Toileting (FIM): 1 Transfers (B, C, W/C) (FIM): 1 Toilet/Commode Transfer (FIM): 1 Education OT Patient Education: Progress toward Goal/Update tx plan, Purpose of tx/ functional activities, Rehab process, Safety issues, Transfer techniques Teaching Recipient: Patient Teaching Methods: Discussion Response to Teaching: Return Demonstration (with difficulty), Reinforcement Needed OT Credit Card Control Clerk Goals Detention Goals Time Frame: november 12, 2016 Eating (FIM): 5 Grooming(FIM): 5 Bathing(FIM): 4 Upper Body Dressing(FIM): 4 Lower Body Dressing(FIM): 4 Toileting(FIM): 4 Toilet/Commode Transfer(FIM): 4 Shower Transfer(FIM): 4 Additional Goals: 3-ImproveStrength/Jelani 1=Demonstrate adherence to instructed precautions during ADL tasks. 2=Patient will verbalize/demonstrate understanding of assistive devices/ modifications for ADL. 3=Patient will improve strength/tolerance for activity to enable patient to perform ADL's. OT Education/Plan Problem List/Assessment Assessment: Decreased Safety Aware, Decreased UE Strength, Dependent Transfers , Impaired Bed Mobility, Impaired Cognition, Impaired Funct Balance, Impaired Self-Care Skills Pt would benefit from skilled OT to increase her independence in basic self care to allow her to return to the least restrictive environment and decrease caregiver burden Discharge Recommendations Plan/Recommendations: Continue POC Barriers to Progress decreased cognition, motor planning, initiation Target Placement Herlinda Raya Treatment Plan/Plan of Care Treatment,Training & Education: Yes Patient would benefit from OT for education, treatment and training to promote independence in ADL's, mobility, safety and/or upper extremity function for ADL' s. Plan of Care: ADL Retraining, Caregiver Training, Functional Mobility, UE Funct Exercise/Act, UE Neuromus Re-Ed/Coord Treatment Duration: Nov 12, 2016 # of days/week 5 Agreement: No (daughter in agreement) Rehab Potential: Fair Time/GCodes Start Time: 15:30 Stop Time: 16:00 Total Time Billed (hr/min): 30 Billed Treatment Time visit, 30 minutes evaluation high complexity KARLI JENSEN OT Nov 01, 2016 16:16 Stop Time: 16:00 Total Time Billed (hr/min): 30 Billed Treatment Time visit, 30 minutes evaluation complex KARLI JENSEN OT Nov 01, 2016 16:16
[2016-11-01] MEDS: SPIRONOLACTONE 25 MG (ALDACTONE) TAB PO SCH (17:58)
[2016-11-01] MEDS: POLYETHYLENE GLYCOL 17 GM (MIRALAX) PACK PO SCH (22:16)
[2016-11-01] MEDS: ENOXAPARIN 40 MG/0.4 ML (LOVENOX) SYR SC SCH (22:16)
[2016-11-01] MEDS: DONEPEZIL 10 MG (ARICEPT) TAB PO SCH (22:17)
[2016-11-01] MEDS: inSUlin DETERMIR 1 UNIT/0.01 ML (LEVEMIR) CHARGE PER UNIT SQ SCH (22:17)
[2016-11-01] MEDS: ACETAMINOPHEN 325 MG TABLET/CAPLET (TYLENOL) PO PRN (23:53)
[2016-11-02] VITALS: BP 145/82
[2016-11-02] MEDS: inSUlin (REGULAR) HUMAN 1 UNIT/0.01 ML (CHARGE PER UNIT) SC SCH ×4 (05:40→21:06)
[2016-11-02] MEDS: NS IV 1000 ML 1,000 ML IV SCH ×2 (06:01→17:17)
[2016-11-02] MEDS: SINEMET 25/100 (CARBIDOPA/LEVODOPA) TAB PO SCH ×3 (06:01→17:15)
[2016-11-02] MEDS: MULTIVIT W/MINERALS TAB (THERAGRAN M) PO SCH (06:01)
[2016-11-02 06:32] LABS: MEAN PLATELET VOLUME 9.6 FL (7.4-10.4); RED BLOOD COUNT 4.33 10^6/uL (4.35-5.85); RED CELL DISTRIBUTION WIDTH 14.6 % (10.0-14.5); WHITE BLOOD COUNT 5.7 10^3/uL (4.3-11.0)
[2016-11-02 06:58] LABS: ALANINE AMINOTRANSFERASE 14 U/L (0-55); ALBUMIN 3.2 G/DL (3.2-4.5); ANION GAP 12 MMOL/L (5-14); ASPARTATE AMINO TRANSFERASE 40 U/L (5-34); BILIRUBIN,TOTAL 0.3 MG/DL (0.1-1.0); BLOOD UREA NITROGEN 16 MG/DL (7-18); BUN/CREATININE RATIO 25; CALCIUM 8.7 MG/DL (8.5-10.1); CARBON DIOXIDE 18 MMOL/L (21-32); CHLORIDE 109 MMOL/L (98-107); CREATINE KINASE 479 U/L (29-168); CREATININE SERUM 0.64 MG/DL (0.60-1.30); GFR ESTIMATED > 60; GLUCOSE 171 MG/DL (70-105); POTASSIUM 3.9 MMOL/L (3.6-5.0); SODIUM 139 MMOL/L (135-145); TOTAL PROTEIN 5.6 G/DL (6.4-8.2)
--- NOTE | 2016-11-02 07:53 | Progress Note (SOAP) ---
Subjective Subjective/Events-last exam PT ALERT THIS MORNING. SHE STATES "CAROLYNN JACKSON" AND ASKED ABOUT MY MOTHER WHOM SHE HAS KNOWN FOR YEARS. YESTERDAY SHE DID NOT AWAKEN ENOUGH TO REMEMBER THAT I HAD BEEN IN TO EVALUATE HER AND WAS ALMOST OBTUNDED YESTERDAY. HER DAUGHTER WAS SITTING IN THE CHAIR AT BEDSIDE, AND STATED "CAN YOU BELIEVE HOW WELL SHE IS DOING, SHE IS EVEN FEEDING HERSELF TODAY". Review of Systems General: No Chills, Fatigue HEENT: No Head Aches Pulmonary: Dyspnea Cough Cardiovascular: No: Chest Pain Gastrointestinal: No: Abdominal Pain, Nausea Genitourinary: Incontinence Neurological: : Confusion (INTERMITTENT): Weakness Objective Exam Vital Signs Date Time Temp Pulse Resp B/P Pulse Ox O2 Delivery O2 Flow Rate FiO2 11/02/16 00:00 96.6 70 18 145/82 92 Room Air 11/01/16 22:07 Nasal Cannula 3.00 11/01/16 20:30 Room Air 11/01/16 15:52 98.0 77 18 141/82 92 Room Air 3.00 11/01/16 12:11 97.2 74 18 147/68 94 Nasal Cannula 3.00 11/01/16 09:44 90 Nasal Cannula 3.00 11/01/16 08:25 98.6 76 18 142/76 95 Nasal Cannula 3.00 I & O 11/02/16 07:00 Intake Total 1250 ml Output Total 2000 ml Balance -750 ml Capillary Refill : Less Than 3 Seconds General Appearance: WD/WN HEENT: PERRL/EOMI Neck: Full Range of Motion Supple Respiratory: Chest Non Tender Crackles Decreased Breath Sounds Cardiovascular: Regular Rate, Rhythm Gastrointestinal: normal bowel sounds non tender soft no organomegaly no pulsatile mass Extremity: Pedal Edema (TRACE) Neurologic/Psychiatric: Alert Other (ORIENTED TO PERSON, NOT PLACE OR TIME) Skin: Warm/Dry Lymphatic: No Adenopathy Results Lab Laboratory Tests 11/01/16 11:03: Glucometer 197H 11/01/16 17:01: Glucometer 143H 11/01/16 20:50: Glucometer 180H 11/02/16 04:09: Glucometer 170H 11/02/16 05:30: Alanine Aminotransferase (ALT/SGPT) 14, Albumin 3.2, Alkaline Phosphatase 53, Anion Gap 12, Aspartate Amino Transf (AST/SGOT) 40H, BUN/Creatinine Ratio 25, Blood Urea Nitrogen 16, Calcium Level 8.7, Carbon Dioxide Level 18L, Chloride Level 109H, Creatinine 0.64, Estimat Glomerular Filtration Rate > 60, Glucose Level 171H, Hematocrit 38, Hemoglobin 12.9, Mean Corpuscular Hemoglobin 30, Mean Corpuscular Hemoglobin Concent 34, Mean Corpuscular Volume 88, Mean Platelet Volume 9.6, Platelet Count 145, Potassium Level 3.9, Red Blood Count 4.33L, Red Cell Distribution Width 14.6H, Sodium Level 139, Total Bilirubin 0.3 , Total Creatine Kinase 479H, Total Protein 5.6L, White Blood Count 5.7 Microbiology 10/31/16 Gram Stain - Final, Resulted 10/31/16 Sputum Culture - Preliminary, Resulted Probable Haemophilus Assessment/Plan Assessment/Plan Assess & Plan/Chief Complaint RHABDOMYOLYSIS FALL AT ASSISTED LIVING FACILITY DIABETES MELLITUS DEMENTIA RHABDOMYOLYSIS DUE TO FALL AT ASSISTED LIVING FACILITY - CONTINUE WITH IV FLUIDS AND SUPPORTIVE CARE, FOLLOW SERIAL LABS TO ASSURE CONTINUED IMPROVEMENT IN HER SYMPTOMS. PNEUMONIA - WITH HAEMOPHILUS - WAITING ON SPECIATION - CONTINUE WITH CURRENT ANTIBIOTICS. DM - UNCONTROLLED WITH HGBA1C AT 9.1 - START ON LEVEMIR, SLIDING SCALE DEMENTIA - RESTARTED MEDS. PLANNING ON DISCHARGE TO [facility] ON DISCHARGE, CONTINUE WITH PHYSICAL THERAPY. Diagnosis/Problems: Clinical Quality Measures DVT/VTE Risk/Contraindication: Risk Factor Score Per Nursin RFS Level Per Nursing on Admit: 4+=Very High MANUEL GAITAN MD Nov 02, 2016 07:53
[2016-11-02 08:12] VITALS: BP 120/75
[2016-11-02] MEDS ORDERED: RT-ALBUTEROL SULF 2.5 MG/3 ML PRE-MIX VIAL INH PRN (08:15)
[2016-11-02] MEDS: ASPIRIN 325 MG (5 GR) TABLET PO SCH (09:33)
[2016-11-02] MEDS: cefTRIAXone INJECTION 1,000 MG in NORMAL SALINE (BAXTER MINI) 50 ML IV SCH (09:33)
[2016-11-02] MEDS: MEMANTINE 10 MG (NAMENDA) TABLET PO SCH ×2 (09:33→21:06)
[2016-11-02] MEDS: TIMOLOL MALEATE 0.5% 5 ML (TIMOPTIC) BTL OU SCH ×2 (09:34→21:07)
[2016-11-02] MEDS: DORZOLAMIDE 2% 10 ML BTL (TRUSOPT) OU SCH ×2 (09:34→21:07)
[2016-11-02] MEDS: FLUTICASONE NASAL SPRAY (FLONASE) 16 GM BTL NS SCH ×2 (09:34→21:07)
--- NOTE | 2016-11-02 09:52 | Physical Therapy Daily Note ---
PT Daily Note-Current Subjective Patient and daughter agrees to PT. Patient is more alert this a.m. Pain Numeric Pain Scale: 0-No Pain Location: No Pain Reported Mental Status Patient Orientation: Confused Attachments: Oxygen, IV Transfers Functional [place] Measure 0=Not Assessed/NA 4=Minimal Assistance 1=Total Assistance 5=Supervision or Setup 2=Maximal Assistance 6=Modified [place] 3=Moderate Assistance 7=Complete IndependenceIRFPAI Quality Coding Scale 6 Independent with activity with or without an assistive device 5 Patient requires set up or clean up by helper. Patient completes activity by themselves 4 Supervision or touching assist (CGA). [place] provide cues , steadying assist 3 The helper provides less than half the effort to complete the activity 2 The helper provides more than half the effort to complete the activity 1 Dependent. The helper does all the effort to complete an activity 7 Patient refused to complete or attempt activity 9 The patient did not perform the activity before the current illness or injury 88 Not attempted due to Medical conditions or safety concerns Transfers (B, C, W/C) (FIM): 3 Scootin Sit to/from Stand: 3 mod assist with transfers for safety Gait Training Gait (FIM): 1 Distance (FIM): 1=up to 49 ft Distance: 45' Gait Level of Assist: 4 Gait Persons Needed: 1 Gait Assistive Device: FWW Parkinson's gait sequence (festinating) Assessment Patient is up in recliner with needs met. Patient displays mild SOA with O2 in place. PT to increase activity as tolerated by patient. PT Correction Goals Parts Salesman Goals PT Correction Goals Time Frame: Nov 08, 2016 Transfers (B,C,W/C) (FIM): 3 Gait (FIM): 1 Gait distance (FIM): 1=up to 49 ft (24) Distance: 25' Gait Level of Assist: 3 Gait Assistive Device: FWW PT Plan Treatment/Plan Treatment Plan: Continue Plan of Care Treatment Plan: Bed Mobility, Education, Functional Activity Jelani, Functional Strength, Gait, Safety, Therapeutic Exercise, Transfers Treatment Duration: Nov 08, 2016 Visits Per Week: 6 Time/GCodes Time In: 855 Time Out: 910 Total Billed Treatment Time: 15 Total Billed Treatment 1 visit GT 15 min ANTON SHERIFF PT Nov 02, 2016 09:52
--- NOTE | 2016-11-02 09:57 | Occupational Ther Daily Note ---
OT Current Status-Daily Note Subjective Pt sitting in recliner. Pt reported pain on right side (ribs). Daughter present in room. Agreeable to OT. Appearance Alert, cooperative Mental Status/Objective Patient Orientation: Person, Confused Functional [place] Measure 0=Not Assessed/NA 4=Minimal Assistance 1=Total Assistance 5=Supervision or Setup 2=Maximal Assistance 6=Modified [place] 3=Moderate Assistance 7=Complete [place] Attachments: IV ADL-Treatment Pt agreed to sponge bath while sitting in recliner. Pt unable to remove shoes/ socks and gown. Pt washed face, hands, R arm, chest,abdomen but was unable to wash L arm, LB or celestina area. Pt stood Mod A with two people, FWW while OT washed /dried back and front/back celestina area. Pt had difficulty using her R arm to bathe but able to hold washcloth. Pt unable to put socks,shoes on. Daughter brought a plastic cup with a lid and pt was able to drink with a straw by herself. Nursing notified that pt was not using R arm much during ADLs. Pt left in recliner, call light in hand. Daughter present. All needs met. Bathing (FIM): 2 (30%) Bathing Location: R Arm, Chest, Abdomen Education OT Patient Education: Transfer techniques Teaching Recipient: Patient Teaching Methods: Discussion Response to Teaching: Return Demonstration, Reinforcement Needed OT Short Term Goals Short Term Goals 1=Demonstrate adherence to instructed precautions during ADL tasks. 2=Patient will verbalize/demonstrate understanding of assistive devices/ modifications for ADL. 3=Patient will improve strength/tolerance for activity to enable patient to perform ADL's. OT Custodial Goals Custodial Goals Time Frame: november 12, 2016 Eating (FIM): 5 Grooming(FIM): 5 Bathing(FIM): 4 Upper Body Dressing(FIM): 4 Lower Body Dressing(FIM): 4 Toileting(FIM): 4 Toilet/Commode Transfer(FIM): 4 Shower Transfer(FIM): 4 Additional Goals: 3-ImproveStrength/Jelnai 1=Demonstrate adherence to instructed precautions during ADL tasks. 2=Patient will verbalize/demonstrate understanding of assistive devices/ modifications for ADL. 3=Patient will improve strength/tolerance for activity to enable patient to perform ADL's. OT Education/Plan Problem List/Assessment Pt would benefit from skilled OT to increase her independence in basic self care to allow her to return to the least restrictive environment and decrease caregiver burden Discharge Recommendations Plan/Recommendations: Continue POC Treatment Plan/Plan of Care Patient would benefit from OT for education, treatment and training to promote independence in ADL's, mobility, safety and/or upper extremity function for ADL' s. Plan of Care: ADL Retraining, Caregiver Training, Functional Mobility, UE Funct Exercise/Act, UE Neuromus Re-Ed/Coord Treatment Duration: Nov 12, 2016 Agreement: No (daughter in agreement) Rehab Potential: Fair Time/GCodes Start Time: 09:10 Stop Time: 09:45 Total Time Billed (hr/min): 35 Billed Treatment Time visit, 35 minutes ADL KARLI JENSEN OT Nov 02, 2016 09:57
[2016-11-02] MEDS: RT-ALBUTEROL SULF 2.5 MG/3 ML PRE-MIX VIAL INH SCH ×3 (11:34→19:33)
[2016-11-02] MEDS: ACETAMINOPHEN 325 MG TABLET/CAPLET (TYLENOL) PO PRN (13:35)
[2016-11-02] MEDS ORDERED: MULT-1029 PO (15:24)
[2016-11-02] MEDS ORDERED: METF1000 PO (15:24)
[2016-11-02] MEDS ORDERED: MEMA28CA PO (15:24)
[2016-11-02] MEDS ORDERED: DORZ10DR24 OU (15:24)
[2016-11-02] MEDS ORDERED: DAPA5TAB PO (15:24)
[2016-11-02] MEDS ORDERED: SPIR50TA PO (15:24)
[2016-11-02] MEDS ORDERED: CNC1KV IJ (15:24)
[2016-11-02] MEDS ORDERED: DIVA125T3 PO (15:24)
[2016-11-02] MEDS ORDERED: DONE10TA41 PO (15:24)
[2016-11-02] MEDS ORDERED: CINN500C2 PO (15:24)
[2016-11-02] MEDS ORDERED: ASPI-808 PO (15:24)
[2016-11-02 15:40] VITALS: BP 114/71
[2016-11-02] MEDS: SPIRONOLACTONE 25 MG (ALDACTONE) TAB PO SCH (17:15)
[2016-11-02] MEDS: DONEPEZIL 10 MG (ARICEPT) TAB PO SCH (21:05)
[2016-11-02] MEDS: POLYETHYLENE GLYCOL 17 GM (MIRALAX) PACK PO SCH (21:05)
[2016-11-02] MEDS: HYDROcodone/APAP 5 MG/325 MG (LORTAB) TAB PO PRN (21:06)
[2016-11-02] MEDS: inSUlin DETERMIR 1 UNIT/0.01 ML (LEVEMIR) CHARGE PER UNIT SQ SCH (21:06)
[2016-11-02] MEDS: ENOXAPARIN 40 MG/0.4 ML (LOVENOX) SYR SC SCH (21:19)
[2016-11-03] VITALS: BP 124/74
[2016-11-03] MEDS: inSUlin (REGULAR) HUMAN 1 UNIT/0.01 ML (CHARGE PER UNIT) SC SCH ×2 (06:00→10:43)
[2016-11-03] MEDS: MULTIVIT W/MINERALS TAB (THERAGRAN M) PO SCH (06:07)
[2016-11-03] MEDS: NS IV 1000 ML 1,000 ML IV SCH (06:07)
[2016-11-03] MEDS: SINEMET 25/100 (CARBIDOPA/LEVODOPA) TAB PO SCH ×2 (06:07→12:52)
[2016-11-03] MEDS: RT-ALBUTEROL SULF 2.5 MG/3 ML PRE-MIX VIAL INH SCH ×2 (07:14→10:55)
[2016-11-03 08:37] VITALS: BP 164/76
[2016-11-03] MEDS ORDERED: INSU100V5 SQ (08:52)
[2016-11-03] MEDS ORDERED: INSU100V3 SC (08:52)
[2016-11-03] MEDS ORDERED: ALBU2.5V4 INH (08:52)
[2016-11-03] MEDS ORDERED: CEFD300C3 PO (08:52)
[2016-11-03] MEDS ORDERED: CARB1TAB19 PO (08:52)
[2016-11-03] MEDS ORDERED: POLY17PO23 PO (08:52)
--- NOTE | 2016-11-03 08:56 | Discharge Inst-Skilled Nursing ---
Discharge Inst-Skilled NF Patient Instructions Patient Problems: pneumonia weakness rhabdomyolysis dementia parkinsons disease Consult/Follow Up/Orders Follow Up Appt.: 2 weeks with [facility] Skilled NF Admit to: Neil Certification (SNF) I certify that SNF services are required to be given on an inpatient basis because of the above named patient's need for [facility] care on a continuing basis for the conditions(s) for which he/she was receiving inpatient hospital services prior to his/her transfer to the SNF. Usp Facility Order: Nursing Services, [facility] Furnace Tender-Evaluate & Treat, Physical Therapy-Evaluate & Treat Discharge Diet: Other Diet ([facility] diet as tolerated) New & Resume Previous Orders New & Resume Previous Orders fsbs ac and hs use sliding scale pt eval and treat ot eval and treat nursing send bp and heart rate and fsbs report to the office weekly ua with c and s prn symptoms of urinary tract infection fax or call the office with any concerns about the patient breathing treatments per medication orders Manuel Reddy Nov 03, 2016 08:53 Pneu Vac Indicated: Yes Medication List: Active Scripts Active Cefdinir 300 Mg Capsule 300 Mg PO BID Humulin R (Insulin Regular, Human) 1,000 Units/10 Ml Soln 0 Unit SC ACHS sliding scale FSBS mg/dl reg insulin dose units 200-250 3 251-300 5 301-350 7 351-400 9 &>[address] Leung (Insulin Determir) 1,000 Units/10 Ml Soln 10 Unit SQ HS Polyethylene Glycol 3350 17 Gm Powd.pack 17 Gm PO HS Carbidopa-Levodopa 25-100 Tab (Carbidopa/Levodopa) 1 Each Tablet 1 Ea PO TIDWM Albuterol Sulfate 2.5 Mg/3 Ml Vial.neb 2.5 Mg INH TID give breathing treatments three times daily x 10 days and every 4 hours prn shortness of breath Reported Cinnamon (Cinnamon Bark) 500 Mg Capsule 1,000 Mg PO DAILY TAKES 2 (500 MG) CAPSULES Aspirin 325 Mg Tablet 325 Mg PO DAILY Centrum Silver Tablet (Multivit-Min/FA/Lycopene/Lut) 1 Each Tablet 1 Tab PO DAILY Cyanocobalamin Injection (Cyanocobalamin) 1,000 Mcg/Ml Inj 1,000 Mcg IJ MONTHLY TYPICALLY THE 2ND OF EACH MONTH Farxiga (Dapagliflozin Propanediol) 5 Mg Tablet 5 Mg PO DAILY Aldactone (Spironolactone) 50 Mg Tablet 50 Mg PO DAILY Divalproex Sodium 125 Mg Tablet.dr 125 Mg PO DAILY Dorzolamide-Timolol Eye Drops (Dorzolamide HCl/Timolol Maleat) 10 Ml Drops 1 Drop OU BID LAST FILLED 07/19/16 #10 ML Metformin HCl 1,000 Mg Tablet 1,000 Mg PO BID Namenda Xr (Memantine HCl) 28 Mg Cap.spr.24 28 Mg PO DAILY Donepezil HCl 10 Mg Tablet 10 Mg PO HS Lab results: Laboratory Tests Test 11/02/16 11:32 11/02/16 15:58 11/02/16 20:44 11/03/16 05:40 Range/Units Glucometer 196 H 191 H 214 H 135 H 70-110 MG/DL My orders: Orders-MANUEL REDDY MD Patient Visit (11/02/16 ) Gait Training, Ea 15 Min (11/02/16 ) Attending Discharge (11/03/16 08:52) MANUEL REDDY MD Nov 03, 2016 08:56
--- NOTE | 2016-11-03 08:58 | Discharge Summary ---
Diagnosis/Chief Complaint Date of Admission Oct 30, 2016 at 12:45 Date of Discharge Discharge Date: Nov 03, 2016 Discharge Time: 1000 Admission Diagnosis Admission Diagnosis rhabdomyolysis. Hypoglycemia. Alzheimer's. Falling Discharge Diagnosis RHABDOMYOLYSIS FALL AT ASSISTED LIVING FACILITY DIABETES MELLITUS DEMENTIA PNEUMONIA PARKINSONS DISEASE GENERALIZED WEAKNESS Reason Hospital Visit patient has a history of Alzheimer's. Patient short-term memory loss. Patient was found on floor in her apartment last night and also this morning. Patient fell during the night and sustained a bruise of the right elbow. History by son son also states that mother has pain in the ribs now. Patient lives at [facility]. Patient found sweaty and clammy Discharge Summary Discharge Physical Examination Allergies: Coded Allergies: No Allergy Information Available (Unverified , 10/30/16) Vitals & I&Os Vital Signs Date Time Temp Pulse Resp B/P Pulse Ox O2 Delivery O2 Flow Rate FiO2 11/03/16 10:55 96 Nasal Cannula 4.00 11/03/16 08:37 98.4 72 18 164/76 General Appearance: Alert, Cooperative, Other (ORIENTED TO PERSON, PLACE) HEENT: Atraumatic, PERRLA Respiratory: Other (FAINT CRACKLES IN BASES BILATERALLY -IMPROVED FROM PREVIOUS EXAMS) Cardiovascular: Regular Rate Abdominal: Normal Bowel Sounds, Soft, No Tenderness Extremities: No Clubbing, No Cyanosis Skin: No Rashes Neuro: Cranial Nerves 3-12 NL Psych/Mental Status: Mental Status NL, Mood NL Hospital Course RHABDOMYOLYSIS FALL AT ASSISTED LIVING FACILITY DIABETES MELLITUS DEMENTIA RHABDOMYOLYSIS DUE TO FALL AT ASSISTED LIVING FACILITY - CONTINUE WITH FLUIDS AND SUPPORTIVE CARE, LABS SHOWING IMPROVEMENT OVERALL. PNEUMONIA - WITH HAEMOPHILUS - PT WAS ON ROCEPHIN - CHANGE TO CEFDINIR ORALLY X 6 MORE DAYS, BREATHING TREATMENTS AND OXYGEN FROM [facility] DM - UNCONTROLLED WITH HGBA1C AT 9.1 - STARTED ON LEVEMIR, SLIDING SCALE DEMENTIA - RESTARTED MEDS. PARKINSON'S DISEASE - STARTED ON [place] PLANNING ON DISCHARGE TO [facility] IN [place], CONTINUE WITH PHYSICAL THERAPY. Pending Labs Laboratory Tests 11/03/16 05:40: Glucometer 135 11/03/16 10:41: Glucometer 186 Discharge Condition at discharge IMPROVING Instructions to patient/family Please see electonic discharge instructions given to patient. Discharge Medications Reviewed and agree with Discharge Medication list on patient's Discharge Instruction sheet Clinical Quality Measures DVT/VTE Risk/Contraindication: Risk Factor Score Per Nursin RFS Level Per Nursing on Admit: 4+=Very High MANUEL GAITAN MD Nov 03, 2016 08:58
[2016-11-03] MEDS: DORZOLAMIDE 2% 10 ML BTL (TRUSOPT) OU SCH (09:01)
[2016-11-03] MEDS: cefTRIAXone INJECTION 1,000 MG in NORMAL SALINE (BAXTER MINI) 50 ML IV SCH (09:01)
[2016-11-03] MEDS: MEMANTINE 10 MG (NAMENDA) TABLET PO SCH (09:01)
[2016-11-03] MEDS: ASPIRIN 325 MG (5 GR) TABLET PO SCH (09:01)
[2016-11-03] MEDS: TIMOLOL MALEATE 0.5% 5 ML (TIMOPTIC) BTL OU SCH (09:02)
[2016-11-03] MEDS: FLUTICASONE NASAL SPRAY (FLONASE) 16 GM BTL NS SCH (09:02)
[2016-11-03] MEDS: HYDROcodone/APAP 5 MG/325 MG (LORTAB) TAB PO PRN (09:19)
[2016-11-03 13:30] VITALS: BP 164/76
[2016-12-06] MEDS ORDERED: MAGN400T6 PO (10:37)
[2016-12-06] MEDS ORDERED: NITR0.4T SL (10:37)
== END 2016-11-03 13:38 | DRG 564 ==
LOC: EDUNIT# 11:37 → ER 11:41 → 4TH 12:45
PROVIDERS: ADMIT Family Medicine; ATTEND Family Medicine
DX: T79.6XXA Traumatic ischemia of muscle, initial encounter (principal); J14 Pneumonia due to Hemophilus influenzae; S50.311A Abrasion of right elbow, initial encounter; S80.01XA Contusion of right knee, initial encounter; S80.02XA Contusion of left knee, initial encounter; S30.1XXA Contusion of abdominal wall, initial encounter; S50.12XA Contusion of left forearm, initial encounter; E11.65 Type 2 diabetes mellitus with hyperglycemia; Z66 Do not resuscitate; R07.81 Pleurodynia; G30.9 Alzheimer's disease, unspecified; F02.80 Dementia in other diseases classified elsewhere, unspecified severity, without behavioral disturbance, psychotic disturbance, mood disturbance, and anxiety; I10 Essential (primary) hypertension; G20 Parkinson's disease; W19.XXXA Unspecified fall, initial encounter; Y92.129 Unspecified place in nursing home as the place of occurrence of the external cause
CPT/HCPCS: 36415; 70360; 70450; 71010; 71020; 71110; 72125; 80048; 80053; 80164; 81000; 82550; 82962; 83036; 83735; 83874; 84439; 84443; 85007; 85027; 85610; 87070; 87205; 94640; 94664; 94760; 94761; 96360

== ENCOUNTER 2016-12-02 18:52 | Inpatient (IN) | payer MEDICARE, OTHER ==
[~2016-12-02] VITALS: Ht 165.1 cm; Wt 76.4 kg
[~2016-12-02 18:52] MED LIST: ALBU2.5V4 INH; ASPI-808 PO; CARB1TAB19 PO; CEFD300C3 PO; CINN500C2 PO; CNC1KV IJ; DAPA5TAB PO; DIVA125T3 PO; DONE10TA41 PO; DORZ10DR24 OU; INSU100V3 SC; INSU100V5 SQ; MEMA28CA PO; METF1000 PO; MULT-1029 PO; POLY17PO23 PO; SPIR50TA PO
--- OUTSIDE RECORDS SUMMARY | 2016-12-02 18:57 | XMS REPORT | Continuity of Care Document ---
Author Author [facility] Organization [facility] Address Unknown Phone Unavailable Care Team Providers Care Solder Deposit Operator Name Role Phone MANUEL REDDY MD PCP Insurance Providers Payer Name Policy Number Subscriber Name Relationship [employer] [id number] Carl Beasley 18 Self / Same As Patient Enter Insurance Name [id number] Carl Beasley 18 Self / Same As Patient Advance Directives Directive Response Recorded Date/Time Advance Directives No 10/30/16 4:39pm Health Care Power of Presentation Team Member Yes 10/30/16 4:39pm Resuscitation Status DNR-Pt Request 10/30/16 4:39pm Chief Complaint and Reason for Visit Chief Complaint RHABDOMYOLYSIS,HYPERGLYCEMIA Reason for Visit Fall Hyperglycemia Pneumonia RESPIRATORY FAILURE, UNSP, UNSP W HYPOXIA OR HYPERCAPNIA Rhabdomyolysis Problems Active Problems Medical Problem Onset Date Status Fall Unknown Acute Hyperglycemia Unknown Acute Pneumonia Unknown Acute RESPIRATORY FAILURE, UNSP, UNSP W HYPOXIA OR HYPERCAPNIA Unknown Acute Rhabdomyolysis Unknown Acute Medications Current Home Medications Medication Dose Units Route Directions Days/Qty Instructions Start Date Donepezil Hcl 10 Mg 10 Mg Oral Bedtime 11/02/16 Memantine Hcl 28 Mg 28 Mg Oral Daily 11/02/16 Dorzolamide Hcl/Timolol Maleat 10 Ml 1 Drop Each Eye Twice A Day LAST FILLED 07/19/16 #10 ML 11/02/16 Spironolactone 50 Mg 50 Mg Oral Daily 11/02/16 Cyanocobalamin 1,000 Mcg/Ml 1,000 Mcg Injection Monthly TYPICALLY THE 2ND OF EACH MONTH 11/02/16 Multivit-Min/Fa/Lycopene/Lut 1 Each 1 Tab Oral Daily 11/02/16 Aspirin 325 Mg 325 Mg Oral Daily 11/02/16 Cinnamon Bark 500 Mg 1,000 Mg Oral Daily TAKES 2 (500 MG) CAPSULES 01/14 Albuterol Sulfate 2.5 Mg/3 Ml 2.5 Mg Inhalation Three Times A Day 120 give breathing treatments three times daily x 10 days and every 4 hours prn shortness of breath 11/03/16 Carbidopa/Levodopa 1 Each 1 Ea Oral Three Times Daily With Meals 90 Polyethylene Glycol 3350 17 Gm 17 Gm Oral Bedtime 90 11/03/16 Insulin Determir 1,000 Units/10 Ml 10 Unit Sub-Q Bedtime 3 11/03/16 Insulin Regular, Human 1,000 Units/10 Ml 0 Unit Subcutaneously Before Meals And At Bedtime 1 sliding scale FSBS mg/dl reg insulin dose units 200- 250 3 251-300 5 301-350 7 351-400 9 &>400 call 11/03/16 Cefdinir (Omnicef) 300 Mg 300 Mg Oral Twice A Day 10 11/03/16 Past Home Medications Medication Directions Ordered Status Metformin Hcl 1,000 Mg Tablet, 1000 Mg Oral Twice A Day 11/02/16 Discontinued Divalproex Sodium 125 Mg Tablet., 125 Mg Oral Daily 11/02/16 Discontinued Dapagliflozin Propanediol 5 Mg Tablet, 5 Mg Oral Daily 11/02/16 Discontinued Social History Social History Problem Response Recorded Date/Time Alcohol Use Denies Use 10/30/2016 4:34pm Recreational Drug Use No 10/30/2016 4:34pm Recent Foreign Travel No 10/30/2016 4:47pm Recent Infectious Disease Exposure No 10/30/2016 4:47pm Sexually Transmitted Disease No 10/30/2016 4:34pm HIV/AIDS No 10/30/2016 4:34pm Smoking Status Never a Smoker 10/30/2016 4:38pm Recent Hopitalizations No 10/30/2016 4:34pm Sexually Transmitted Disease No 10/30/2016 4:34pm Query Response Start Date Stop Date Smoking Status Never a Smoker Hospital Discharge Instructions Patient Instructions Physician Instructions Patient Problems: pneumonia weakness rhabdomyolysis dementia parkinsons disease Follow Up Appt.: 2 weeks with [facility] Certification (SNF) I certify that SNF services are required to be given on an inpatient basis because of the above named patient's need for [facility] care on a continuing basis for the conditions(s) for which he/she was receiving inpatient hospital services prior to his/her transfer to the SNF. Correction Facility Order: Nursing Services, Research Investigator-Evaluate & Treat, Physical Therapy-Evaluate & Treat Discharge Diet: Other Diet ([facility] diet as tolerated) New & Resume Previous Orders fsbs ac and hs use sliding scale pt eval and treat ot eval and treat nursing send bp and heart rate and fsbs report to the office weekly ua with c and s prn symptoms of urinary tract infection fax or call the office with any concerns about the patient breathing treatments per medication orders Manuel Reddy Nov 03, 2016 08:53 Pneu Vac Indicated: Yes Care Plan Patient Problems: pneumoniaweaknessrhabdomyolysisdementiaparkinsons disease Plan of Care Discharge Date 11/03/16 1:38pm Disposition 03 XFER SNF Instructions/Education Provided Community-Acquired Pneumonia in Adults Rhabdomyolysis (DC) Prescriptions See Medication Section Follow-up Orders Chest Pa/Lat (2 View Referrals [facility] (Unspecified) - 2 Weeks Reason(s) for Referral: Fall Rhabdomyolysis Pneumonia [facility] (Unspecified) - 2 Weeks Reason(s) for Referral: RESPIRATORY FAILURE, UNSP, UNSP W HYPOXIA OR HYPERCAPNIA Rhabdomyolysis Pneumonia Care Plan and Goals See Discharge Instructions Section Functional Status Query Response Date Recorded Patient Orientation Person Confused November 02, 2016 3:32pm Patient Orientation Person Confused November 03, 2016 1:39pm Comprehension Ability Unable to Comprehend November 03, 2016 8:00am Allergies, Adverse Reactions, Alerts Unable to obtain allergies. Immunizations No immunization records. Vital Signs Acute Vital Signs Vital Response Date/Time Temperature (Fahrenheit) 98.4 degrees F (97.6 - 99.5) 11/03/2016 1:30pm Temperature (Calculated Celsius) 36.94841 degrees C (36.4 - 37.5) 11/03/2016 8:37am Temperature Source Tympanic 11/03/2016 1:30pm Pulse Rate (adult) 72 bpm (60 - 90) 11/03/2016 1:30pm Respiratory Rate 18 bpm (12 - 24) 11/03/2016 1:30pm O2 Sat by Pulse Oximetry 95 % (88 - 100) 11/03/2016 1:30pm Blood Pressure 164/76 mm Hg 11/03/2016 1:30pm Blood Pressure Mean 105 mm Hg 11/03/2016 8:37am Pain Numeric Pain Scale 0-No Pain 11/03/2016 1:30pm Height (Feet) 5 feet 10/30/2016 4:38pm Height (Inches) 5.00 inches 10/30/2016 4:38pm Height (Calculated Centimeters) 165.279099 cm 10/30/2016 4:38pm Weight (Pounds) 200 pounds 10/30/2016 4:38pm Weight (Ounces) 0.0 oz 10/30/2016 4:38pm Weight (Calculated Grams) 78764.48 gm 10/30/2016 4:38pm Weight (Calculated Kilograms) 90.480496 kilograms 10/30/2016 4:38pm Calculated BMI 33.3 10/30/2016 4:38pm Capillary Refill Capillary Refill Less Than 3 Seconds 10/31/2016 8:00am Results Laboratory Results Test Name Result Units Flags Reference Collection Date/Time Result Date/ Time Comments White Blood Count 5.7 10^3/uL 4.3-11.0 11/02/2016 5:30am 11/02/2016 6: 47am Red Blood Count 4.33 10^6/uL L 4.35-5.85 11/02/2016 5:30am 11/02/2016 6: 47am Hemoglobin 12.9 G/DL 11.5-16.0 11/02/2016 5:30am 11/02/2016 6:47am Hematocrit 38 % 35-52 11/02/2016 5:30am 11/02/2016 6:47am Mean Corpuscular Volume 88 FL 80-99 11/02/2016 5:30am 11/02/2016 6: 47am Mean Corpuscular Hemoglobin 30 PG 25-34 11/02/2016 5:30am 11/02/2016 6: 47am Mean Corpuscular Hemoglobin Concent 34 G/DL 32-36 11/02/2016 5:30am 12/2016 6:47am Red Cell Distribution Width 14.6 % H 10.0-14.5 11/02/2016 5:30am 2016 6:47am Platelet Count 145 10^3/uL 130-400 11/02/2016 5:30am 11/02/2016 6:47am Mean Platelet Volume 9.6 FL 7.4-10.4 11/02/2016 5:30am 11/02/2016 6: 47am Neutrophils (%) (Auto) 87 % H 42-75 10/30/2016 11:51am 10/30/2016 12: 21pm Lymphocytes (%) (Auto) 4 % L 12-44 10/30/2016 11:51am 10/30/2016 12:21pm Monocytes (%) (Auto) 9 % 0-12 10/30/2016 11:51am 10/30/2016 12:21pm Eosinophils (%) (Auto) 0 % 0-10 10/30/2016 11:51am 10/30/2016 12:21pm Basophils (%) (Auto) 0 % 0-10 10/30/2016 11:51am 10/30/2016 12:21pm Neutrophils # (Auto) 9.9 X 10^3 H 1.8-7.8 10/30/2016 11:51am 10/30/2016 12:21pm Lymphocytes # (Auto) 0.5 X 10^3 L 1.0-4.0 10/30/2016 11:51am 10/30/2016 12:21pm Monocytes # (Auto) 1.0 X 10^3 0.0-1.0 10/30/2016 11:51am 10/30/2016 12: 21pm Eosinophils # (Auto) 0.0 10^3/uL 0.0-0.3 10/30/2016 11:51am 10/30/2016 12:21pm Basophils # (Auto) 0.0 10^3/uL 0.0-0.1 10/30/2016 11:51am 10/30/2016 12 :21pm Neutrophils % (Manual) 89 % 10/30/2016 11:51am 10/30/2016 12:37pm Lymphocytes % (Manual) 4 % 10/30/2016 11:51am 10/30/2016 12:37pm Monocytes % (Manual) 7 % 10/30/2016 11:51am 10/30/2016 12:37pm Blood Morphology Comment NORMAL 10/30/2016 11:51am 10/30/2016 12: 37pm Prothrombin Time 13.6 SEC 12.2-14.7 10/30/2016 11:51am 10/30/2016 12: 30pm INR Comment 1.1 0.8-1.4 10/30/2016 11:51am 10/30/2016 12:30pm INTERPRETIVE DATA SUGGESTED THERAPEUTIC RANGE FOR INR'S: VENOUS THROMBOSIS, PULMONARY EMBOLISM, OR PREVENTION OF SYSTEMIC EMBOLISM (EG. IN ATRIAL FIBRILLATION): 2.0 - 3.0 MECHANICAL PROSTHETIC HEART VALVES: 2.5 - 3.5* *NOTE: INR'S UP TO 4.5 MAY BE NECESSARY IN SELECTED GROUPS OF HIGH RISK PATIENTS. [place] [place] [employer] OF [employer]ST [employer] CONSENSUS CONFERENCE ON ANTITHROMBOTIC THERAPY (2000). Urine Color YELLOW 10/30/2016 11:51am 10/30/2016 12:29pm Urine Clarity CLEAR 10/30/2016 11:51am 10/30/2016 12:29pm Urine pH 5 5-9 10/30/2016 11:51am 10/30/2016 12:29pm Urine Specific [place] 1.020 1.016-1.022 10/30/2016 11:51am 2015 12:29pm Urine Protein 3+ * NEGATIVE 10/30/2016 11:51am 10/30/2016 12:29pm Urine Glucose (UA) 4+ * NEGATIVE 10/30/2016 11:51am 10/30/2016 12:29pm Urine RBC (Auto) 5+ * NEGATIVE 10/30/2016 11:51am 10/30/2016 12:29pm Urine Ketones 4+ * NEGATIVE 10/30/2016 11:51am 10/30/2016 12:29pm Urine Nitrite NEGATIVE NEGATIVE 10/30/2016 11:51am 10/30/2016 12: 29pm Urine Bilirubin NEGATIVE NEGATIVE 10/30/2016 11:51am 10/30/2016 12: 29pm Urine Urobilinogen NORMAL MG/DL NORMAL 10/30/2016 11:51am 10/30/2016 12 :29pm Urine Leukocyte Esterase NEGATIVE NEGATIVE 10/30/2016 11:51am 2015 12:29pm Urine RBC NONE /HPF 10/30/2016 11:51am 10/30/2016 12:29pm Urine WBC NONE /HPF 10/30/2016 11:51am 10/30/2016 12:29pm Urine Bacteria NEGATIVE /HPF 10/30/2016 11:51am 10/30/2016 12:29pm Urine Squamous Epithelial Cells 2-5 /HPF 10/30/2016 11:51am 2015 12:29pm Urine Crystals NONE /LPF 10/30/2016 11:51am 10/30/2016 12:29pm Urine Casts NONE /LPF 10/30/2016 11:51am 10/30/2016 12:29pm Urine Mucus NEGATIVE /LPF 10/30/2016 11:51am 10/30/2016 12:29pm Urine Culture Indicated NO 10/30/2016 11:51am 10/30/2016 12:29pm Sodium Level 139 MMOL/L 135-145 11/02/2016 5:30am 11/02/2016 7:11am Potassium Level 3.9 MMOL/L 3.6-5.0 11/02/2016 5:30am 11/02/2016 7:11am Chloride Level 109 MMOL/L H 98-107 11/02/2016 5:30am 11/02/2016 7:11am Carbon Dioxide Level 18 MMOL/L L 21-32 11/02/2016 5:30am 11/02/2016 7: 11am Anion Gap 12 MMOL/L 5-14 11/02/2016 5:30am 11/02/2016 7:11am Blood Urea Nitrogen 16 MG/DL 7-18 11/02/2016 5:30am 11/02/2016 7:11am Creatinine 0.64 MG/DL 0.60-1.30 11/02/2016 5:30am 11/02/2016 7:11am BUN/Creatinine Ratio 25 11/02/2016 5:30am 11/02/2016 7:11am Estimat Glomerular Filtration Rate > 60 11/02/2016 5:30am 2016 7:11am GFR INTERPRETIVE DATA UNITS FOR ESTIMATED GFR (eGFR): mL/min/1.73 M2 REFERENCE RANGE FOR ESTIMATED GFR (eGFR) eGFR NORMAL eGFR >60 MODERATELY DECREASED eGFR 30-59 SEVERLY DECREASED eGFR 15-29 KIDNEY FAILURE <15 (OR DIALYSIS) Glucose Level 171 MG/DL H 70-105 11/02/2016 5:30am 11/02/2016 7:11am Glucometer 186 MG/DL H 70-110 11/03/2016 10:41am 11/03/2016 10:54am Calcium Level 8.7 MG/DL 8.5-10.1 11/02/2016 5:30am 11/02/2016 7:11am Magnesium Level 1.5 MG/DL L 1.8-2.4 10/31/2016 4:37am 10/31/2016 5:14am Total Bilirubin 0.3 MG/DL 0.1-1.0 11/02/2016 5:30am 11/02/2016 7:11am Alkaline Phosphatase 53 U/L 40-136 11/02/2016 5:30am 11/02/2016 7:11am Aspartate Amino Transf (AST/SGOT) 40 U/L H 5-34 11/02/2016 5:30am 2016 7:11am Alanine Aminotransferase (ALT/SGPT) 14 U/L 0-55 11/02/2016 5:30am 11/02 7:11am Total Creatine Kinase 479 U/L H 29-168 11/02/2016 5:30am 11/02/2016 7: 11am Myoglobin 303.3 NG/ML H 10.0-92.0 11/01/2016 5:35am 11/01/2016 6:55am Total Protein 5.6 G/DL L 6.4-8.2 11/02/2016 5:30am 11/02/2016 7:11am Albumin 3.2 G/DL 3.2-4.5 11/02/2016 5:30am 11/02/2016 7:11am Thyroid Stimulating Hormone (TSH) 0.60 UIU/ML 0.35-4.94 10/30/2016 1: 33pm 10/30/2016 2:29pm Free Thyroxine 1.00 NG/DL 0.70-1.48 10/30/2016 1:33pm 10/30/2016 2: 29pm Valproic Acid (Depakene) Level 11.2 UG/ML L 50.0-100.0 10/30/2016 11:51am 10/30/2016 1:01pm Hemoglobin A1c 9.1 % H 4.5-6.2 10/30/2016 12:05pm 10/30/2016 3:46pm Microbiology Results Procedure Source Result Collection Date/Time Result Date/Time Sputum Culture Sputum, Expectorated HAEMOPHILUS INFLUENZA 10/31/2016 10: 14pm 11/03/2016 9:20am Procedures No known history of procedures. Encounters Encounter Location Arrival/Admit Date Discharge/Depart Date Attending Provider Discharged Inpatient [facility] 10/30/16 12:45pm 1:38pm MANUEL REDDY MD Recent Diagnosis Fall Hyperglycemia Pneumonia RESPIRATORY FAILURE, UNSP, UNSP W HYPOXIA OR HYPERCAPNIA Rhabdomyolysis
[2016-12-02] MEDS ORDERED: ASPIRIN 81 MG CHEW (CHILDREN'S ASA) PO ONE (19:15)
[2016-12-02 19:16] LABS: BASOPHILS % (AUTO) 0 % (0-10); EOSINOPHILS # (AUTO) 0.2 10^3/uL (0.0-0.3); EOSINOPHILS % (AUTO) 1 % (0-10); LYMPHOCYTES # (AUTO) 1.6 X 10^3 (1.0-4.0); LYMPHOCYTES % (AUTO) 14 % (12-44); MEAN CORPUSCULAR HEMOGLOBIN 30 PG (25-34); MEAN CORPUSCULAR HGB CONC 33 G/DL (32-36); MEAN CORPUSCULAR VOLUME 89 FL (80-99); MEAN PLATELET VOLUME 9.4 FL (7.4-10.4); MONOCYTES % (AUTO) 9 % (0-12); NEUTROPHILS # (AUTO) 8.6 X 10^3 (1.8-7.8); NEUTROPHILS % (AUTO) 76 % (42-75); PLATELET COUNT 207 10^3/uL (130-400); RED BLOOD COUNT 4.85 10^6/uL (4.35-5.85); RED CELL DISTRIBUTION WIDTH 14.4 % (10.0-14.5); WHITE BLOOD COUNT 11.4 10^3/uL (4.3-11.0)
--- NOTE | 2016-12-02 19:23 | Diagnostic Imaging Report ---
INDICATION: Chest pain Upright chest shows normal heart size and vascularity. The lungs are clear. There is no effusion or pneumothorax. IMPRESSION: No acute abnormality is seen with no change from 10/31/16. Dictated by: Dictated on workstation # [id number]
[2016-12-02 19:27] LABS: PROTHROMBIN TIME PATIENT 13.3 SEC (12.2-14.7)
[2016-12-02 19:38] LABS: ALANINE AMINOTRANSFERASE < 6 U/L (0-55); ALBUMIN 3.8 G/DL (3.2-4.5); ANION GAP 9 MMOL/L (5-14); ASPARTATE AMINO TRANSFERASE 44 U/L (5-34); BILIRUBIN,TOTAL 0.6 MG/DL (0.1-1.0); BLOOD UREA NITROGEN 17 MG/DL (7-18); BUN/CREATININE RATIO 21; CALCIUM 9.4 MG/DL (8.5-10.1); CARBON DIOXIDE 26 MMOL/L (21-32); CHLORIDE 102 MMOL/L (98-107); GFR ESTIMATED > 60; GLUCOSE 180 MG/DL (70-105); MAGNESIUM 1.5 MG/DL (1.8-2.4); POTASSIUM 3.9 MMOL/L (3.6-5.0); SODIUM 137 MMOL/L (135-145); TOTAL PROTEIN 6.7 G/DL (6.4-8.2)
--- NOTE | 2016-12-02 19:41 | ED Chest Pain ---
General Chief Complaint: Cardiac/General Problems Stated Complaint: CP Nursing Triage Note: pt sent from [facility] for follow up on elevated labs. Pt denies CP currently but reports she did have some last week. Nursing Sepsis Screen: No Definite Risk Source: patient, EMS, fpc records, old records Exam Limitations: no limitations History of Present Illness Time seen by provider: 18:53 Initial Comments This 81-year-old woman presents to the emergency room via EMS from [facility] in [place]. She has been having some intermittent chest pain over the past few weeks and an outpatient troponin level was done today. It reportedly returned with a critical value. She was sent to the emergency room for further evaluation. She denies any present chest pain or shortness of air. She has no prior history of heart disease. Allergies and Home Medications Allergies Coded Allergies: No Allergy Information Available (Unverified , 10/30/16) Home Medications Albuterol Sulfate 2.5 Mg/3 Ml Vial.neb #120 2.5 MG INH TID give breathing treatments three times daily x 10 days and every 4 hours prn shortness of breath Prescribed by: MANUEL REDDY on 11/03/16851 Aspirin 325 Mg Tablet 325 MG PO DAILY (Reported) Carbidopa/Levodopa 1 Each Tablet #90 1 EA PO TIDWM Prescribed by: MANUEL REDDY on 11/03/16851 Cefdinir 300 Mg Capsule #10 300 MG PO BID Prescribed by: MANUEL REDDY on 11/03/16851 Cinnamon Bark 500 Mg Capsule 1,000 MG PO DAILY (Reported) TAKES 2 (500 MG) CAPSULES Cyanocobalamin 1,000 Mcg/Ml Inj 1,000 MCG IJ MONTHLY (Reported) TYPICALLY THE 2ND OF EACH MONTH Donepezil HCl 10 Mg Tablet 10 MG PO HS (Reported) Dorzolamide HCl/Timolol Maleat 10 Ml Drops 1 DROP OU BID (Reported) LAST FILLED 07/19/16 #10 ML Insulin Determir 1,000 Units/10 Ml Soln #3 10 UNIT SQ HS Prescribed by: MANUEL REDDY on 11/03/16851 Insulin Regular, Human 1,000 Units/10 Ml Soln #1 0 UNIT SC ACHS sliding scale FSBS mg/dl reg insulin dose units 200-250 3 251-300 5 301-350 7 351-400 9 &>[address] Prescribed by: MANUEL REDDY on 11/03/16 0852 Memantine HCl 28 Mg Cap.spr.24 28 MG PO DAILY (Reported) Multivit-Min/FA/Lycopene/Lut 1 Each Tablet 1 TAB PO DAILY (Reported) Polyethylene Glycol 3350 17 Gm Powd.pack #90 17 GM PO HS Prescribed by: MANUEL REDDY on 11/03/16 0852 Spironolactone 50 Mg Tablet 50 MG PO DAILY (Reported) Review of Systems Constitutional: no symptoms reported EENTM: No Symptoms Reported Respiratory: No Symptoms Reported Cardiovascular: See HPI Gastrointestinal: No Symptoms Reported Genitourinary: No Symptoms Reported Musculoskeletal: no symptoms reported Skin: no symptoms reported Psychiatric/Neurological: No Symptoms Reported Endocrine: No Symptoms Reported Hematologic/Lymphatic: No Symptoms Reported Past Jtacsbw-Ecwngo-Ytqwpv Hx Patient Social History Alcohol Use: Denies Use Recreational Drug Use: No Smoking Status: Unknown if Ever Smoked Recent Foreign Travel: No Contact w/Someone Who Travel: No Recent Infectious Disease Expo: No Recent Hopitalizations: No Immunizations Up To Date Tetanus Booster (TDap): Unknown Date of Influenza Vaccine: Aug 04, 2016 Seasonal Allergies Seasonal Allergies: No Surgeries HX Surgeries: Yes Respiratory Hx Respiratory Disorders: Yes Respiratory Disorders: Pneumonia, COPD Cardiovascular Hx Cardiac Disorders: Yes Cardiac Disorders: Hypertension Neurological Hx Neurological Disorders: Yes (alzheimers ) Neurological Disorders: Dementia, Parkinson's Disease Reproductive System Hx Reproductive Disorders: No Sexually Transmitted Disease: No HIV/AIDS: No Female Reproductive Disorders: Denies Genitourinary Hx Genitourinary Disorders: No Gastrointestinal Hx Gastrointestinal Disorders: Yes Gastrointestinal Disorders: Chronic Constipation Musculoskeletal Hx Musculoskeletal Disorders: Yes (muscle weakness, difficulty walking, lack of cordination, history of rhabdomyolysis) Endocrine Hx Endocrine Disorders: Yes Endocrine Disorders: Diabetes, Non-Insulin dep HEENT HX ENT Disorders: Yes HEENT Disorders: Cataract, Glaucoma Loss of Vision: Denies Hearing Impairment: Denies Cancer Hx Cancer: No Psychosocial Hx Psychiatric Problems: No Integumentary HX Skin/Integumentary Disorder: No Blood Transfusions Hx Blood Disorders: No Adverse Reaction to a Blood Tr: No Physical Exam Vital Signs Vital Sign - Last 12Hours 12/02/16 19:06 Temp 97.7 Pulse 56 Resp 18 B/P 175/82 Pulse Ox 98 O2 Flow Rate 2 Capillary Refill : Less Than 3 Seconds General Appearance: No Apparent Distress WD/WN HEENT: PERRL/EOMI Normal ENT Inspection Neck: Normal Inspection Respiratory: No Accessory Muscle Use No Respiratory Distress Crackles (left lung) Cardiovascular: No Edema No Murmur Irregularly Irregular (in sinus rhythm on EKG) Gastrointestinal: Normal Bowel Sounds Non Tender Soft Extremity: Normal Inspection No Pedal Edema Neurologic/Psychiatric: Alert No Motor/Sensory Deficits Normal Mood/Affect car driver II-XII Norm as Tested Other (cognitive deficits secondary to dementia and Alzheimer's. Fine tremor present) Skin: Normal Color Warm/Dry Progress/Results/Core Measures Results/Orders Lab Results Laboratory Tests Test 12/02/16 19:10 Range/Units Activated Partial Thromboplast Time 26 24-35 SEC Alanine Aminotransferase (ALT/SGPT) < 6 0-55 U/L Albumin 3.8 3.2-4.5 G/DL Alkaline Phosphatase 71 40-136 U/L Anion Gap 9 5-14 MMOL/L Aspartate Amino Transf (AST/SGOT) 44 H 5-34 U/L B-Type Natriuretic Peptide 293.4 H <100.0 PG/ML BUN/Creatinine Ratio 21 Basophils # (Auto) 0.0 0.0-0.1 10^3/uL Basophils (%) (Auto) 0 0-10 % Blood Urea Nitrogen 17 7-18 MG/DL C-Reactive Protein High Sensitivity 0.46 0.00-0.50 MG/DL Calcium Level 9.4 8.5-10.1 MG/DL Carbon Dioxide Level 26 21-32 MMOL/L Chloride Level 102 98-107 MMOL/L Creatinine 0.80 0.60-1.30 MG/DL Eosinophils # (Auto) 0.2 0.0-0.3 10^3/uL Eosinophils (%) (Auto) 1 0-10 % Estimat Glomerular Filtration Rate > 60 Glucose Level 180 H 70-105 MG/DL Hematocrit 43 35-52 % Hemoglobin 14.3 11.5-16.0 G/DL INR Comment 1.0 0.8-1.4 Lymphocytes # (Auto) 1.6 1.0-4.0 X 10^3 Lymphocytes (%) (Auto) 14 12-44 % Magnesium Level 1.5 L 1.8-2.4 MG/DL Mean Corpuscular Hemoglobin 30 25-34 PG Mean Corpuscular Hemoglobin Concent 33 32-36 G/DL Mean Corpuscular Volume 89 80-99 FL Mean Platelet Volume 9.4 7.4-10.4 FL Monocytes # (Auto) 1.0 0.0-1.0 X 10^3 Monocytes (%) (Auto) 9 0-12 % Myoglobin 80.8 10.0-92.0 NG/ML Neutrophils # (Auto) 8.6 H 1.8-7.8 X 10^3 Neutrophils (%) (Auto) 76 H 42-75 % Platelet Count 207 130-400 10^3/uL Potassium Level 3.9 3.6-5.0 MMOL/L Prothrombin Time 13.3 12.2-14.7 SEC Red Blood Count 4.85 4.35-5.85 10^6/uL Red Cell Distribution Width 14.4 10.0-14.5 % Sodium Level 137 135-145 MMOL/L Total Bilirubin 0.6 0.1-1.0 MG/DL Total Protein 6.7 6.4-8.2 G/DL Troponin I 5.28 *H <0.30 NG/ML White Blood Count 11.4 H 4.3-11.0 10^3/uL My Orders Orders-TONJA MARTINEZ MD Cbc With Automated Diff (12/02/16 19:) Magnesium (12/02/16 19:) Chest 1 View, Ap/Pa Only (12/02/16 19:01) Ekg Tracing (12/02/16 19:01) Cardiac Profile 1 (12/02/16 19:01) Comprehensive Metabolic Panel (12/02/16 19:) Myoglobin Serum (12/02/16 19:) Protime With Inr (12/02/16 19:) Partial Thromboplastin Time (12/02/16 19:01) O2 (12/02/16 19:01) Monitor-Rhythm Ecg Trace Only (12/02/16 19:) Lipid Panel (12/03/16 06:00) Aspirin Chewable Tablet (Baby Aspirin Ch (12/02/16 19:15) Saline Lock/Iv-Start (12/02/16 19:01) BNP (12/02/16 19:01) Hs C Reactive Protein (12/02/16 19:01) Clopidogrel Tablet (Plavix Tablet) (12/02/16 20:15) Enoxaparin Injection (Lovenox Injection) (12/02/16 20:15) Amlodipine Tablet (Norvasc Tablet) (12/02/16 20:15) Metoprolol Succinate (Xl) Tab (Toprol Xl (12/02/16 20:15) Medications Given in ED Current Medications Medications Dose Ordered Sig/Claudette Route Start Time Stop Time Status Last Admin Dose Admin Aspirin 324 mg ONCE ONCE PO 12/02/16 19:15 12/02/16 19:16 DC 12/02/16 19:16 324 MG Vital Signs/I&O Vital Sign - Last 12Hours 12/02/16 19:06 Temp 97.7 Pulse 56 Resp 18 B/P 175/82 Pulse Ox 98 O2 Flow Rate 2 Blood Pressure Mean: 113 ECG Initial ECG Impression Date: Dec 02, 2016 Initial ECG Impression Time: 19:03 Initial ECG Rate: 57 Initial ECG Rhythm: Normal Sinus Initial ECG Intervals: Normal Comment Normal sinus rhythm with no ST elevation or depression. Automated read reports LAFB and LVH. Diagnostic Imaging Diagonstic Imaging: Xray Plain Films/CT/US/NM/MRI: chest Comments Chest x-ray viewed by me and report reviewed. See report below: NAME: CARL BEASLEY [facility] REC#: [id number] PT STATUS: REG ER : 1935 PHYSICIAN: TONJA MARTINEZ MD ADMIT DATE: 12/02/16/ER Draft Date of Exam:12/02/16 CHEST 1 VIEW, AP/PA ONLY INDICATION: Chest pain Upright chest shows normal heart size and vascularity. The lungs are clear. There is no effusion or pneumothorax. IMPRESSION: No acute abnormality is seen with no change from 10/31/16. Dictated on workstation # [id number] Dict: 12/02/161920 Trans: 12/02/161922 STEVEN [id number] Interpreted by: MEGHNA ADAMSON MD Departure Communication Time/Spoke to Admitting Phy: 20:10 Communication Case was reviewed with Dr. Reddy who agrees with admission and consultation with Dr. Becerra. Time/Spoke to Consulting Physi: 20:05 Communication/Consulting Case was reviewed with Dr. Becerra who agrees with admission and treatment for an STEMI. He would like Norvasc 5 mg administered for blood pressure control as well as Toprol XL 12.5 mg, Plavix 300 mg, and weight-based Lovenox for treatment of KS. Patient is to be admitted under stepdown status. She is to be nothing by mouth after a clear liquid breakfast. Impression Impression: Primary Impression: Non-ST elevation myocardial infarction (NSTEMI) Additional Impressions: Hypertension Qualified Code: I10 - Essential (primary) hypertension Hypomagnesemia Disposition: ADMITTED INPATIENT Condition: Improved Decision to Admit Reason: Admit from ER (General) Decision to Admit/Date: Dec 02, 2016 Time/Decision to Admit Time: 18:53 Departure-Patient Inst. Referrals: MANUEL REDDY MD (PCP/Family) Primary Care Physician TONJA MARTINEZ MD Dec 02, 2016 19:41
[2016-12-02 19:45] LABS: MYOGLOBIN SERUM 80.8 NG/ML (10.0-92.0)
[2016-12-02] MEDS ORDERED: ENOXAPARIN 100 MG/1 ML (LOVENOX) SYR SC ONE (20:15)
[2016-12-02] MEDS ORDERED: amLODIPine 5 MG (NORVASC) TAB PO ONE (20:15)
[2016-12-02] MEDS ORDERED: CLOPIDOGREL 300 MG (PLAVIX) TABLET PO ONE (20:15)
[2016-12-02 21:10] VITALS: BP 103/74
[2016-12-02] MEDS ORDERED: ONDANSETRON 4 MG/2 ML (SDV) Z0FRAN IV PRN (21:30)
[2016-12-02] MEDS ORDERED: CATHETER FLUSH 10 ML SYR IV PRN (21:30)
[2016-12-02] MEDS: CATHETER FLUSH 10 ML SYR IV SCH (21:49)
[2016-12-02] MEDS: MAGNESIUM OXIDE (MAG-OX)400 MG TAB PO SCH (21:49)
[2016-12-03 04:00] VITALS: BP 173/85
[2016-12-03] MEDS: CATHETER FLUSH 10 ML SYR IV SCH ×3 (05:01→20:41)
[2016-12-03 05:04] LABS: BASOPHILS % (AUTO) 0 % (0-10); EOSINOPHILS # (AUTO) 0.4 10^3/uL (0.0-0.3); EOSINOPHILS % (AUTO) 3 % (0-10); LYMPHOCYTES # (AUTO) 1.4 X 10^3 (1.0-4.0); LYMPHOCYTES % (AUTO) 11 % (12-44); MEAN CORPUSCULAR HEMOGLOBIN 30 PG (25-34); MEAN CORPUSCULAR HGB CONC 34 G/DL (32-36); MEAN CORPUSCULAR VOLUME 89 FL (80-99); MEAN PLATELET VOLUME 10.3 FL (7.4-10.4); MONOCYTES # (AUTO) 1.1 X 10^3 (0.0-1.0); MONOCYTES % (AUTO) 9 % (0-12); NEUTROPHILS # (AUTO) 9.8 X 10^3 (1.8-7.8); NEUTROPHILS % (AUTO) 77 % (42-75); PLATELET COUNT 169 10^3/uL (130-400); RED BLOOD COUNT 4.79 10^6/uL (4.35-5.85); RED CELL DISTRIBUTION WIDTH 14.2 % (10.0-14.5); WHITE BLOOD COUNT 12.7 10^3/uL (4.3-11.0)
[2016-12-03 05:28] LABS: ANION GAP 14 MMOL/L (5-14); BLOOD UREA NITROGEN 17 MG/DL (7-18); BUN/CREATININE RATIO 23; CALCIUM 9.4 MG/DL (8.5-10.1); CARBON DIOXIDE 22 MMOL/L (21-32); CHLORIDE 102 MMOL/L (98-107); CHOLESTEROL 168 MG/DL (< 200); CREATINE KINASE 438 U/L (29-168); CREATININE SERUM 0.75 MG/DL (0.60-1.30); DIRECT LDL 106 MG/DL (1-129); GFR ESTIMATED > 60; GLUCOSE 238 MG/DL (70-105); MAGNESIUM 1.6 MG/DL (1.8-2.4); PHOSPHORUS 3.4 MG/DL (2.3-4.7); POTASSIUM 3.9 MMOL/L (3.6-5.0); SODIUM 138 MMOL/L (135-145); TRIGLYCERIDES 117 MG/DL (<150); VLDL CHOLESTEROL 23 MG/DL (5-40)
[2016-12-03 05:35] LABS: TROPONIN I 6.74 NG/ML (<0.30)
--- NOTE | 2016-12-03 07:25 | Diagnostic Imaging Report ---
Portable upright radiograph of the chest. INDICATION: Chest pain. FINDINGS: The lungs are clear. The heart size is normal. There is no effusion or pneumothorax. The mediastinum and renee appear unremarkable. IMPRESSION: Unremarkable exam. Dictated by: Dictated on workstation # [id number]
[2016-12-03 07:52] VITALS: BP 150/79
[2016-12-03] MEDS ORDERED: SOLI10TA2 PO (08:32)
[2016-12-03] MEDS ORDERED: CARB1TAB19 PO (08:32)
[2016-12-03] MEDS ORDERED: POLY119P5 PO (08:32)
[2016-12-03] MEDS ORDERED: ACET325T49 PO (08:46)
[2016-12-03] MEDS ORDERED: INSU100I29 SQ ×2 (08:46)
[2016-12-03] MEDS ORDERED: ALBU2.5V4 IH (08:46)
[2016-12-03] MEDS ORDERED: INSU100V3 SQ ×2 (08:46)
--- NOTE | 2016-12-03 08:49 | History & Physicial ---
History of Present Illness History of Present Illness Reason for visit/HPI PT IS A 81 Y/O FEMALE WHO IS KNOWN TO ME FROM CLINIC. SHE HAS RECENTLY BEEN HOSPITALIZED, WAS DISCHARGED TO THE RESIDENTIAL WHERE HER DAUGHTER WORKS AND HAS BEEN DOING WELL UNTIL THIS PAST WEEKEND WHEN SHE HAD CHEST PAIN. THE FACILITY CALLED DR. CAMPUZANO, HE ADVISED SENDING HER TO THE EMERGENCY DEPARTMENT LAST TUESDAY - BUT THE PT WAS FEELING BETTER AND THE PT AND FAMILY DECIDED NOT TO TRANSPORT PT TO THE HOSPITAL. THE PATIENT HAD INTERMITTENT CHEST PAIN DURING THE WEEK LAST WEEK, BUT THEN HAD AN ACUTE EPISODE ON TUESDAY - LABS WERE ORDERED AND THE TROPONIN SHOWED AN ELEVATION IN THE 4 RANGE, SHE WAS TRANSPORTED TO [facility] EMERGENCY DEPT AND HER TROPONIN HAD INCREASED UP TO 5. DR. RIVERA WAS CONSULTED AND HE DISCUSSED WITH FAMILY THE PLAN FOR CATHETERIZATION VERSUS CONSERVATIVE TREATMENT. THIS MORNING THE PT DENIES CHEST PAIN, NAUSEA, ABDOMINAL PAIN. Date of Admission Dec 02, 2016 at 20:25 I consulted on this patient on 12/03/16 08:49 Attending Physician Manuel Reddy MD Admitting Physician Manuel Reddy MD Consult MAE RIVERA MD Allergies and Home Medications Allergies Coded Allergies: No Allergy Information Available (Unverified , 10/30/16) Home Medications Acetaminophen 325 Mg Tablet 650 MG PO Q4H PRN PRN PAIN (Reported) TAKES 2 (325 MG) TABLETS Albuterol Sulfate 2.5 Mg/3 Ml Vial.neb 2.5 MG IH Q4H PRN PRN SHORTNESS OF BREATH (Reported) Aspirin 325 Mg Tablet 325 MG PO DAILY (Reported) Carbidopa/Levodopa 1 Each Tablet 1 TAB PO TID@0800,1400,2000 (Reported) Cinnamon Bark 500 Mg Capsule 1,000 MG PO DAILY (Reported) TAKES 2 (500 MG) CAPSULES Cyanocobalamin 1,000 Mcg/Ml Inj 1,000 MCG IJ MONTHLY (Reported) TYPICALLY THE 2ND OF EACH MONTH Donepezil HCl 10 Mg Tablet 10 MG PO HS (Reported) Dorzolamide HCl/Timolol Maleat 10 Ml Drops 1 DROP OU BID (Reported) LAST FILLED 07/19/16 #10 ML Insulin Detemir 100 Unit/1 Ml Insuln.pen 10 UNIT SQ DAILY@0700 (Reported) Insulin Detemir 100 Unit/1 Ml Insuln.pen 20 UNIT SQ DAILY@1900 (Reported) Insulin Regular, Human 1,000 Units/10 Ml Soln 10 UNITS SQ DAILY@1500 (Reported) Insulin Regular, Human 1,000 Units/10 Ml Soln SQ SLIDING/SCALE (Reported) 200-250 3 UNITS 251-300 5 UNITS 301-350 7 UNITS 351-400 9 UNITS > 400 CALL DOCTOR NOTIFY DOCTOR IS BS IS < 70 OR > 400 Memantine HCl 28 Mg Cap.spr.24 28 MG PO DAILY (Reported) Multivit-Min/FA/Lycopene/Lut 1 Each Tablet 1 TAB PO DAILY (Reported) Polyethylene Glycol 3350 119 Gm Powder 17 GM PO HS (Reported) Solifenacin Succinate 10 Mg Tablet 10 MG PO DAILY (Reported) Spironolactone 50 Mg Tablet 50 MG PO DAILY (Reported) Past Mqsmmmp-Fsnytv-Rkvahr Hx Patient Social History Marrital Status: Living Status: L[facility] Employed/Student: retired Alcohol Use: Denies Use Recreational Drug Use: No Smoking Status: Never a Smoker 2nd Hand Smoke Exposure: No Physical Abuse Screen: No Sexual Abuse: No Recent Foreign Travel: No Contact w/other who traveled: No Recent Hopitalizations: Yes (4 WEEKS AGO) Recent Infectious Disease Expo: No Immunizations Up To Date Tetanus Booster (TDap): Unknown Date of Influenza Vaccine: Aug 04, 2016 Seasonal Allergies Seasonal Allergies: No Surgeries HX Surgeries: Yes Respiratory Hx Respiratory Disorders: Yes Respiratory Disorders: COPD Cardiovascular Hx Cardiovascular Disorders: Yes Cardiac Disorders: High Cholesterol, Hypertension Neurological Hx Neurological Disorders: Yes (alzheimers ) Neurological Disorders: Dementia, Parkinson's Disease Reproductive System : No Hx Reproductive Disorders: No Sexually Transmitted Disease: No HIV/AIDS: No Female Reproductive Disorders: Denies Genitourinary Hx Genitourinary Disorders: No Gastrointestinal Hx Gastrointestinal Disorders: Yes Gastrointestinal Disorders: Chronic Constipation Musculoskeletal Hx Musculoskeletal Disorders: Yes (muscle weakness, difficulty walking, lack of cordination, history of rhabdomyolysis) Musculoskeletal Disorders: Arthritis Endocrine Hx Endocrine Disorders: Yes Endocrine Disorders: Diabetes, Non-Insulin dep HEENT HX ENT Disorders: Yes HEENT Disorders: Cataract, Glaucoma Loss of Vision: Denies Hearing Impairment: Denies Cancer Hx Cancer: No Psychosocial Hx Psychiatric Problems: No Behavioral Health Disorders: Depression Integumentary HX Skin/Integumentary Disorder: No Blood Transfusions Hx Blood Disorders: No Adverse Reaction to a Blood Tr: No Reviewed Nursing Assessment Reviewed/Agree w Nursing PMH: Yes Family Medical History Significant Family History: Heart Disease, Diabetes, Hypertension Family Hx: Alcoholism 19 FATHER, , Age:73, Onset:Unknown Diabetes mellitus 19 MOTHER, , Age:60 years and older, Onset:Unknown FH: CHF (congestive heart failure) 19 FATHER, , Age:73, Onset:Unknown FH: blindness 19 MOTHER, , Age:60 years and older, Onset:Unknown FH: smoking 19 FATHER, , Age:73, Onset:Unknown Constitutional: No chills, No fever, No malaise, weakness EENTM: No mouth pain, No throat pain Respiratory: no symptoms reportedNo cough, No short of breath Cardiovascular: No chest pain Gastrointestinal: No abdominal pain, No constipation, No diarrhea Genitourinary: no symptoms reported : No Musculoskeletal: No back pain, muscle stiffness muscle weakness Skin: no symptoms reportedNo lesions Psychiatric/Neurological: Denies Anxiety, Weakness All Other Systems Reviewed Negative Unless Noted: Yes Physical Exam Vital Signs Vital Sign - Last 12Hours 12/02/16 19:06 Temp 97.7 Pulse 56 Resp 18 B/P 175/82 Pulse Ox 96 O2 Delivery Nasal Cannula O2 Flow Rate 2 Capillary Refill : Less Than 3 Seconds General Appearance: No Apparent Distress WD/WN Eyes: Bilateral Eye EOMI, Bilateral Eye Normal Inspection, Bilateral Eye PERRL HEENT: PERRL/EOMI Neck: Full Range of Motion Supple Respiratory: Chest Non Tender Lungs Clear Normal Breath Sounds No Accessory Muscle Use No Respiratory Distress Cardiovascular: Regular Rate, Rhythm No Edema Gastrointestinal: Normal Bowel Sounds No Organomegaly No Pulsatile Mass Non Tender Soft Rectal: Deferred Extremity: Normal Capillary Refill Non Tender No Calf Tenderness No Pedal Edema Neurologic/Psychiatric: Alert Normal Mood/Affect Motor Weakness Lymphatic: No Adenopathy Assessment/Plan Assessment and Plan NON-ST [place] ELEVATED TROPONIN DIABETES MELLITUS HYPERTENSION HYPERLIPIDEMIA PARKINSON'S DISEASE GENERALIZED WEAKNESS NON-ST [place] - ELEVATED TROPONIN - CONTINUE WITH PLANS FOR CONSERVATIVE TREATMENT WITH DR. RIVERA - PLAVIX, STATIN, MONITOR HEART RATE, BLOOD PRESSURES. DIABETES MELLITUS - RESTARTED HOME MEDS, ACCU CHECKS HYPERTENSION- RESTART HOME MEDS PARKINSON'S DISEASE - RESTART SINEMET GENERALIZED WEAKNESS Admission Diagnosis NON-ST [place] ELEVATED TROPONIN DIABETES MELLITUS HYPERTENSION HYPERLIPIDEMIA PARKINSON'S DISEASE GENERALIZED WEAKNESS Clinical Quality Measures DVT/VTE Risk/Contraindication: Risk Factor Score Per Nursin RFS Level Per Nursing on Admit: 3=High MANUEL REDDY MD Dec 03, 2016 08:49
--- NOTE | 2016-12-03 08:54 | Consultation-Cardiology ---
HPI-Cardiology Cardiology Consultation: Date of Consultation 12/03/16 Date of Admission 12/02/16 Attending Physician Manuel Reddy MD Admitting Physician Manuel Reddy MD Consulting Physician Ash Becerra MD HPI: Chief Complaint: NSTEMI Ms. Beasley is a 81 year old female who resides at [facility]. Her daughter works at the facility where she resides and is at the bedside along with a daughter in law. Pt has dementia, history is provided with assistance of family. She reports she had a sudden onset of mid-sternal chest pain which she is unable to describe. She states it "hurt real bad". She reports she was sitting in a chair at the time. She states it lasted for " quite awhile". Family reports the discomfort would come and go. She does report some shortness of breath and nausea at the time. The discomfort gradually resolved. Family states they were going to transfer her to the hospital, but she was feeling better and they decided not to transfer. Daughter and patient state she has had some continued nausea over the last few days, but they deny any chest pain. She denies any dyspnea at this time. No c/ o LE, palpitations, syncope or near syncope. Review of Systems-Cardiology Review of Systems Constitutional: As described under HPI Eyes: No blurred vision, No drainage, No pain, No vision change Ears/Nose/Throat: No ear discharge, No ear pain, No nasal drainage, No ulcerations Respiratory: As described under HPI Cardiovascular: As described under HPI Gastrointestinal: No constipation, No diarrhea, nauseaNo vomiting, No stool coloration changes Genitourinary: No dysuria, No discharge, No frequency, No hematuria, No urgency Skin: No rash, No skin related problems, No ulcerations Psychiatric/Neurological: No anxiety, No depression, No focal weakness, No seizure, No syncope Hematologic: No bleeding abnormalities ADZ-Jeooeb-Mbrzzi Hx Patient Social History Alcohol Use: Denies Use Recreational Drug Use: No Smoking Status: Never a Smoker Recent Foreign Travel: No Recent Infectious Disease Expo: No Physical Abuse Screen: No Sexual Abuse: No Immunizations Up To Date Tetanus Booster (TDap): Unknown Date of Influenza Vaccine: Aug 04, 2016 Past Medical History PMH As described under Assessment. Family Medical History Family Medical History: Denies any family h/o premature CAD or SCD Family History: 19 FATHER, , Age:73 Alcoholism, Onset:Unknown FH: smoking, Onset:Unknown FH: CHF (congestive heart failure), Onset:Unknown 19 MOTHER, , Age:60 years and older Diabetes mellitus, Onset:Unknown FH: blindness, Onset:Unknown Allergies and Home Medications Allergies Coded Allergies: No Allergy Information Available (Unverified , 10/30/16) Home Medications Acetaminophen 325 Mg Tablet 650 MG PO Q4H PRN PRN PAIN (Reported) TAKES 2 (325 MG) TABLETS Albuterol Sulfate 2.5 Mg/3 Ml Vial.neb 2.5 MG IH Q4H PRN PRN SHORTNESS OF BREATH (Reported) Aspirin 325 Mg Tablet 325 MG PO DAILY (Reported) Carbidopa/Levodopa 1 Each Tablet 1 TAB PO TID@0800,1400,2000 (Reported) Cinnamon Bark 500 Mg Capsule 1,000 MG PO DAILY (Reported) TAKES 2 (500 MG) CAPSULES Cyanocobalamin 1,000 Mcg/Ml Inj 1,000 MCG IJ MONTHLY (Reported) TYPICALLY THE 2ND OF EACH MONTH Donepezil HCl 10 Mg Tablet 10 MG PO HS (Reported) Dorzolamide HCl/Timolol Maleat 10 Ml Drops 1 DROP OU BID (Reported) LAST FILLED 07/19/16 #10 ML Insulin Detemir 100 Unit/1 Ml Insuln.pen 10 UNIT SQ DAILY@0700 (Reported) Insulin Detemir 100 Unit/1 Ml Insuln.pen 20 UNIT SQ DAILY@1900 (Reported) Insulin Regular, Human 1,000 Units/10 Ml Soln 10 UNITS SQ DAILY@1500 (Reported) Insulin Regular, Human 1,000 Units/10 Ml Soln SQ SLIDING/SCALE (Reported) 200-250 3 UNITS 251-300 5 UNITS 301-350 7 UNITS 351-400 9 UNITS > 400 CALL DOCTOR NOTIFY DOCTOR IS BS IS < 70 OR > 400 Memantine HCl 28 Mg Cap.spr.24 28 MG PO DAILY (Reported) Multivit-Min/FA/Lycopene/Lut 1 Each Tablet 1 TAB PO DAILY (Reported) Polyethylene Glycol 3350 119 Gm Powder 17 GM PO HS (Reported) Solifenacin Succinate 10 Mg Tablet 10 MG PO DAILY (Reported) Spironolactone 50 Mg Tablet 50 MG PO DAILY (Reported) Physical Exam-Cardiology Physical Exam Vital Signs/I&O Vital Sign - Last 12Hours 12/03/16 12/03/16 12/03/163/17 03:46 04:00 04:00 07:52 Temp 99.3 99.3 99.2 Pulse 80 64 Resp 16 13 B/P 173/85 150/79 Pulse Ox 95 95 96 O2 Delivery Room Air Room Air Room Air 12/03/16 08:00 Pulse Ox 96 O2 Delivery Room Air Intake and Output 12/03/16 00:00 Intake Total 50 ml Balance 50 ml Capillary Refill : Less Than 3 Seconds Constitutional: appears stated age well-developed well-nourished HEENT: PERRLNo discharge, hearing is well preserved oral hygience is goodNo ulceration, No xanthelasmas are seen Neck: No carotid bruit, carotid pulses are 2 + bilaterally Respiratory: No accessory muscle use, No respiratory distress, chest expansion is symmetric chest is bilaterally symmetric lungs clear to auscultation Cardiovascular: regular rate-rhythmNo JVD, S1 and S2 Gastrointestinal: No tender, soft roundNo spleenomegaly Extremities: No clubbing, No cyanosis, No significant edema Neurologic/Psychiatric: alert oriented x 3 other (poor historian) power is 5/ 5 both on sides Skin: No rash, No ulcerations Data Review Labs Laboratory Tests 12/02/16 19:10: Activated Partial Thromboplast Time 26, Alanine Aminotransferase (ALT/SGPT) < 6 , Albumin 3.8, Alkaline Phosphatase 71, Anion Gap 9, Aspartate Amino Transf (AST /SGOT) 44H, B-Type Natriuretic Peptide 293.4H, BUN/Creatinine Ratio 21, Basophils # (Auto) 0.0, Basophils (%) (Auto) 0, Blood Urea Nitrogen 17, C- Reactive Protein High Sensitivity 0.46, Calcium Level 9.4, Carbon Dioxide Level 26, Chloride Level 102, Creatinine 0.80, Eosinophils # (Auto) 0.2, Eosinophils ( %) (Auto) 1, Estimat Glomerular Filtration Rate > 60, Glucose Level 180H, Hematocrit 43, Hemoglobin 14.3, INR Comment 1.0, Lymphocytes # (Auto) 1.6, Lymphocytes (%) (Auto) 14, Magnesium Level 1.5L, Mean Corpuscular Hemoglobin 30 , Mean Corpuscular Hemoglobin Concent 33, Mean Corpuscular Volume 89, Mean Platelet Volume 9.4, Monocytes # (Auto) 1.0, Monocytes (%) (Auto) 9, Myoglobin 80.8, Neutrophils # (Auto) 8.6H, Neutrophils (%) (Auto) 76H, Platelet Count 207 , Potassium Level 3.9, Prothrombin Time 13.3, Red Blood Count 4.85, Red Cell Distribution Width 14.4, Sodium Level 137, Total Bilirubin 0.6, Total Protein 6.7, Troponin I 5.28*H, White Blood Count 11.4H 12/03/16 04:15: Anion Gap 14, BUN/Creatinine Ratio 23, Basophils # (Auto) 0.0, Basophils (%) ( Auto) 0, Blood Urea Nitrogen 17, Calcium Level 9.4, Carbon Dioxide Level 22, Chloride Level 102, Creatinine 0.75, Eosinophils # (Auto) 0.4H, Eosinophils (%) (Auto) 3, Estimat Glomerular Filtration Rate > 60, Glucose Level 238H, Hematocrit 43, Hemoglobin 14.4, Lymphocytes # (Auto) 1.4, Lymphocytes (%) (Auto ) 11L, Magnesium Level 1.6L, Mean Corpuscular Hemoglobin 30, Mean Corpuscular Hemoglobin Concent 34, Mean Corpuscular Volume 89, Mean Platelet Volume 10.3, Monocytes # (Auto) 1.1H, Monocytes (%) (Auto) 9, Neutrophils # (Auto) 9.8H, Neutrophils (%) (Auto) 77H, Platelet Count 169, Potassium Level 3.9, Red Blood Count 4.79, Red Cell Distribution Width 14.2, Sodium Level 138, Troponin I 6.74* H, White Blood Count 12.7H, Cholesterol Level 168, HDL Cholesterol 49, LDL Cholesterol Direct 106, Phosphorus Level 3.4, Total Creatine Kinase 438H, Triglycerides Level 117, VLDL Cholesterol 23 12/03/16 10:29: Glucometer 261H Radiology NAME: CARL BEASLEY [employer] REC#: [id number] PT STATUS: ADM IN : 1935 PHYSICIAN: MANUEL REDDY MD ADMIT DATE: 12/02/16/ICU Signed Date of Exam: 12/03/16 CHEST 1 VIEW, AP/PA ONLY Portable upright radiograph of the chest. INDICATION: Chest pain. FINDINGS: The lungs are clear. The heart size is normal. There is no effusion or pneumothorax. The mediastinum and renee appear unremarkable. IMPRESSION: Unremarkable exam. Dictated by: Dictated on workstation # [id number] Dict: 12/03/16 0709 Trans: 12/03/16 0737 [id number] Interpreted by: SABINE VELASQUEZ MD Electronically signed by:SABINE VELASQUEZ MD 12/03/16 0739 ECG Impression ECG Initial ECG Rhythm: Normal Sinus A/P-Cardiology Assessment/Admission Diagnosis NSTEMI - family and patient desires conservative tx HTN HLP Parkinson's DM - insulin requiring - medical services managing Mild dementia Discussion and Recomendations NSTEMI. We have discussed at length with family invasive and conservative tx options. They are currently desiring conservative medical management. We will start ASA 81mg daily, BB and statin. We will do an echocardiogram to evaluate structure. Monitor lab. We have discussed plan of care with Dr. Rdedy her PCP. We would like to thank her for this consult. Further recommendations will be based on her hospital course. This consult is being scribed by EDOUARD Romano on behalf of Dr. Becerra after discussion regarding plan of care. Clinical Quality Measures DVT/VTE Risk/Contraindication: Risk Factor Score Per Nursin RFS Level Per Nursing on Admit: 3=High Physician Assessment Physician Assessment Lungs: clear Cor: reg A&R * As documented in our note above * I had a long discussion with her and her daughter and [id number]. They desire conservative management only * Also discussed her case with EDWARDO Purcell Dec 03, 2016 08:54 ASH BECERRA MD FACP FAC CCDS Dec 03, 2016 14:41
[2016-12-03] MEDS ORDERED: ASPIRIN E.C. 325 MG (ECOTRIN) TABLET PO SCH (09:00)
[2016-12-03] MEDS: MAGNESIUM OXIDE (MAG-OX)400 MG TAB PO SCH ×2 (09:09→20:35)
[2016-12-03] MEDS ORDERED: MAGNESIUM 1 GM/100 ML IVPB 100 ML IV NR (09:49)
[2016-12-03] MEDS ORDERED: ACETAMINOPHEN 325 MG TABLET/CAPLET (TYLENOL) PO PRN (10:45)
[2016-12-03] MEDS ORDERED: RT-ALBUTEROL SULF 2.5 MG/3 ML PRE-MIX VIAL IH PRN (10:45)
[2016-12-03] MEDS ORDERED: inSUlin DETERMIR 1 UNIT/0.01 ML (LEVEMIR) CHARGE PER UNIT SQ ONE (12:42)
[2016-12-03] MEDS: SINEMET 25/100 (CARBIDOPA/LEVODOPA) TAB PO SCH ×3 (12:46→20:35)
[2016-12-03] MEDS: SPIRONOLACTONE 25 MG (ALDACTONE) TAB PO SCH (12:46)
[2016-12-03] MEDS: inSUlin (REGULAR) HUMAN 1 UNIT/0.01 ML (CHARGE PER UNIT) SC SCH ×4 (12:47→20:36)
[2016-12-03] MEDS: MEMANTINE 10 MG (NAMENDA) TABLET PO SCH ×2 (12:47→20:35)
[2016-12-03] MEDS: inSUlin DETERMIR 1 UNIT/0.01 ML (LEVEMIR) CHARGE PER UNIT SQ SCH ×2 (12:47→20:36)
[2016-12-03 13:00] VITALS: BP 132/70
[2016-12-03 16:30] VITALS: BP 135/79
[2016-12-03] MEDS: TROSPIUM 20 MG (SANCTURA) TAB PO SCH (16:47)
[2016-12-03 20:00] VITALS: BP 130/74
[2016-12-03] MEDS: POLYETHYLENE GLYCOL 17 GM (MIRALAX) PACK PO SCH (20:35)
[2016-12-03] MEDS: ATORVASTATIN 20 MG (LIPITOR) TABLET PO SCH (20:35)
[2016-12-03] MEDS: DONEPEZIL 10 MG (ARICEPT) TAB PO SCH (20:35)
[2016-12-03] MEDS: DORZOLAMIDE/TIMOLOL (COSOPT) 2-0.5% 10 ML BTL OU SCH (20:35)
[2016-12-04] VITALS: BP 136/72
[2016-12-04 03:27] LABS: BASOPHILS % (AUTO) 0 % (0-10); EOSINOPHILS # (AUTO) 0.1 10^3/uL (0.0-0.3); EOSINOPHILS % (AUTO) 1 % (0-10); LYMPHOCYTES # (AUTO) 1.3 X 10^3 (1.0-4.0); LYMPHOCYTES % (AUTO) 15 % (12-44); MEAN CORPUSCULAR HEMOGLOBIN 30 PG (25-34); MEAN CORPUSCULAR HGB CONC 33 G/DL (32-36); MEAN CORPUSCULAR VOLUME 89 FL (80-99); MEAN PLATELET VOLUME 9.5 FL (7.4-10.4); MONOCYTES # (AUTO) 1.1 X 10^3 (0.0-1.0); MONOCYTES % (AUTO) 12 % (0-12); NEUTROPHILS # (AUTO) 6.7 X 10^3 (1.8-7.8); NEUTROPHILS % (AUTO) 72 % (42-75); PLATELET COUNT 177 10^3/uL (130-400); RED BLOOD COUNT 4.43 10^6/uL (4.35-5.85); RED CELL DISTRIBUTION WIDTH 14.4 % (10.0-14.5); WHITE BLOOD COUNT 9.3 10^3/uL (4.3-11.0)
[2016-12-04 03:43] LABS: ANION GAP 11 MMOL/L (5-14); BLOOD UREA NITROGEN 16 MG/DL (7-18); BUN/CREATININE RATIO 25; CALCIUM 9.2 MG/DL (8.5-10.1); CARBON DIOXIDE 24 MMOL/L (21-32); CHLORIDE 102 MMOL/L (98-107); CREATININE SERUM 0.65 MG/DL (0.60-1.30); GFR ESTIMATED > 60; GLUCOSE 143 MG/DL (70-105); MAGNESIUM 1.8 MG/DL (1.8-2.4); POTASSIUM 3.7 MMOL/L (3.6-5.0); SODIUM 137 MMOL/L (135-145)
[2016-12-04 04:00] VITALS: BP 140/70
[2016-12-04] MEDS: inSUlin (REGULAR) HUMAN 1 UNIT/0.01 ML (CHARGE PER UNIT) SC SCH ×5 (06:00→21:00)
[2016-12-04] MEDS: CATHETER FLUSH 10 ML SYR IV SCH ×3 (07:00→22:00)
[2016-12-04] MEDS: inSUlin DETERMIR 1 UNIT/0.01 ML (LEVEMIR) CHARGE PER UNIT SQ SCH ×2 (08:11→20:25)
[2016-12-04] MEDS: SINEMET 25/100 (CARBIDOPA/LEVODOPA) TAB PO SCH ×3 (08:11→20:25)
[2016-12-04] MEDS: SPIRONOLACTONE 25 MG (ALDACTONE) TAB PO SCH ×2 (08:11→08:47)
[2016-12-04] MEDS: TROSPIUM 20 MG (SANCTURA) TAB PO SCH ×2 (08:13→16:44)
[2016-12-04 08:30] VITALS: BP 128/83
[2016-12-04] MEDS: CLOPIDOGREL 75 MG (PLAVIX) TABLET PO SCH (08:46)
[2016-12-04] MEDS: ASPIRIN 325 MG (5 GR) TABLET PO SCH (08:46)
[2016-12-04] MEDS: DORZOLAMIDE/TIMOLOL (COSOPT) 2-0.5% 10 ML BTL OU SCH ×2 (08:46→21:00)
[2016-12-04] MEDS: MEMANTINE 10 MG (NAMENDA) TABLET PO SCH ×2 (08:46→20:25)
[2016-12-04] MEDS ORDERED: ASPIRIN E.C. 81 MG (ECOTRIN) TAB PO SCH (09:00)
--- NOTE | 2016-12-04 09:40 | Progress Note (SOAP) ---
Subjective Subjective/Events-last exam PT REPORTS THAT SHE IS FEELING BETTER, SHE STATES THAT SHE HAS NO CHEST PAIN. HER FAMILY NOTES INTERMITTENT TEARFULNESS. HER DAUGHTER REPORTS THAT HER MOM HAS NOT BEEN DRINKING WELL. Review of Systems General: No Fatigue, No Malaise, No Appetite Pulmonary: No Dyspnea, No Cough Cardiovascular: No: Chest Pain Gastrointestinal: No: Abdominal Pain, Nausea Genitourinary: No Dysuria Neurological: : Confusion (INTERMITTENT): Weakness Objective Exam Vital Signs Date Time Temp Pulse Resp B/P Pulse Ox O2 Delivery O2 Flow Rate FiO2 12/04/16 08:30 96.8 73 16 128/83 94 Room Air 12/04/16 08:11 98.5 12/04/16 08:00 Room Air 12/04/16 07:00 70 12/04/16 04:00 93 Room Air 12/04/16 04:00 98.5 62 18 140/70 94 Room Air 12/04/16 00:48 62 12/04/16 00:00 93 Room Air 12/04/16 00:00 98.3 65 18 136/72 94 Room Air 12/03/16 20:36 98.5 12/03/16 20:00 93 Room Air 12/03/16 20:00 98.5 60 18 130/74 93 Room Air 12/03/16 19:14 63 12/03/16 16:30 98.8 67 24 135/79 93 Room Air 12/03/16 16:00 94 Room Air 12/03/16 13:00 98.8 64 30 132/70 96 Room Air 12/03/16 12:00 96 Room Air I & O 12/04/16 07:00 Intake Total 900 ml Output Total 300 ml Balance 600 ml Capillary Refill : Less Than 3 Seconds General Appearance: No Apparent Distress WD/WN HEENT: PERRL/EOMI Neck: Full Range of Motion Respiratory: Chest Non Tender Lungs Clear Normal Breath Sounds No Accessory Muscle Use No Respiratory Distress Cardiovascular: Regular Rate, Rhythm No Edema Gastrointestinal: normal bowel sounds non tender soft Extremity: Normal Capillary Refill No Calf Tenderness No Pedal Edema Neurologic/Psychiatric: Alert Oriented x3 Other (INTERMITTENTLY TEARFUL) Skin: Warm/Dry Lymphatic: No Adenopathy Results Lab Laboratory Tests 12/03/16 10:29: Glucometer 261H 12/03/16 16:50: Glucometer 201H 12/03/16 20:24: Glucometer 207H 12/04/16 03:03: Anion Gap 11, BUN/Creatinine Ratio 25, Basophils # (Auto) 0.0, Basophils (%) ( Auto) 0, Blood Urea Nitrogen 16, Calcium Level 9.2, Carbon Dioxide Level 24, Chloride Level 102, Creatinine 0.65, Eosinophils # (Auto) 0.1, Eosinophils (%) ( Auto) 1, Estimat Glomerular Filtration Rate > 60, Glucose Level 143H, Hematocrit 40, Hemoglobin 13.1, Lymphocytes # (Auto) 1.3, Lymphocytes (%) (Auto ) 15, Magnesium Level 1.8, Mean Corpuscular Hemoglobin 30, Mean Corpuscular Hemoglobin Concent 33, Mean Corpuscular Volume 89, Mean Platelet Volume 9.5, Monocytes # (Auto) 1.1H, Monocytes (%) (Auto) 12, Neutrophils # (Auto) 6.7, Neutrophils (%) (Auto) 72, Phosphorus Level 4.0, Platelet Count 177, Potassium Level 3.7, Red Blood Count 4.43, Red Cell Distribution Width 14.4, Sodium Level 137, White Blood Count 9.3 Assessment/Plan Assessment/Plan Assess & Plan/Chief Complaint NON-ST [place] ELEVATED TROPONIN DIABETES MELLITUS HYPERTENSION HYPERLIPIDEMIA PARKINSON'S DISEASE GENERALIZED WEAKNESS NON-ST [place] - ELEVATED TROPONIN - CONTINUE WITH PLANS FOR CONSERVATIVE TREATMENT WITH DR. RIVERA - PLAVIX, STATIN, MONITOR HEART RATE, BLOOD PRESSURES. DIABETES MELLITUS - RESTARTED HOME MEDS, ACCU CHECKS HYPERTENSION- RESTART HOME MEDS PARKINSON'S DISEASE - RESTART SINEMET GENERALIZED WEAKNESS Diagnosis/Problems: Clinical Quality Measures DVT/VTE Risk/Contraindication: Risk Factor Score Per Nursin RFS Level Per Nursing on Admit: 3=High MANUEL GAITAN MD Dec 04, 2016 09:40
--- NOTE | 2016-12-04 10:02 | Diagnostic Imaging Report ---
INDICATION: Chest pain COMPARISON: 12/03/16 FINDINGS: Single view of the chest demonstrates clear lungs bilaterally. The heart size is normal. There is no pneumothorax. Osseous structures are age-appropriate. IMPRESSION: Negative chest. Dictated by: Dictated on workstation # [id number]
[2016-12-04] MEDS: NS IV 1000 ML 1,000 ML IV SCH ×2 (10:31→23:57)
[2016-12-04 12:02] VITALS: BP 110/56
--- NOTE | 2016-12-04 12:32 | Progress Note-Cardiology ---
Cardiology SOAP Progress Note Subjective: Has not had cp or palp or syncope Objective: I&O/Vital Signs Vital Sign - Last 12Hours 12/04/16 12/04/16 12/04/16 12/04/16 00:48 04:00 04:00 07:00 Temp 98.5 Pulse 62 62 70 Resp 18 B/P 140/70 Pulse Ox 94 93 O2 Delivery Room Air Room Air 12/04/16 12/04/16 12/04/16 12/04/16 08:00 08:11 08:30 12:02 Temp 98.5 96.8 97.9 Pulse 73 65 Resp 16 22 B/P 128/83 110/56 Pulse Ox 94 92 O2 Delivery Room Air Room Air Room Air Intake and Output 12/03/16 23:59 Intake Total 900 ml Output Total 300 ml Balance 600 ml Weight (Pounds): 164 Weight (Ounces): 1.0 Weight (Calculated Kilograms): [id number] Constitutional: appears stated age well-developed well-nourished Respiratory: No accessory muscle use, No respiratory distress, chest expansion is symmetric chest is bilaterally symmetric lungs clear to auscultation Cardiovascular: regular rate-rhythmNo JVD, S1 and S2 Gastrointestional: No tender, soft roundNo spleenomegaly Extremities: No clubbing, No cyanosis, No significant edema Neurologic/Psychiatric: alert oriented x 3 other (poor historian) power is 5/ 5 both on sides Skin: No rash, No ulcerations Results/Procedures: Labs Laboratory Tests 12/03/16 16:50: Glucometer 201H 12/03/16 20:24: Glucometer 207H 12/04/16 03:03: Anion Gap 11, BUN/Creatinine Ratio 25, Basophils # (Auto) 0.0, Basophils (%) ( Auto) 0, Blood Urea Nitrogen 16, Calcium Level 9.2, Carbon Dioxide Level 24, Chloride Level 102, Creatinine 0.65, Eosinophils # (Auto) 0.1, Eosinophils (%) ( Auto) 1, Estimat Glomerular Filtration Rate > 60, Glucose Level 143H, Hematocrit 40, Hemoglobin 13.1, Lymphocytes # (Auto) 1.3, Lymphocytes (%) (Auto ) 15, Magnesium Level 1.8, Mean Corpuscular Hemoglobin 30, Mean Corpuscular Hemoglobin Concent 33, Mean Corpuscular Volume 89, Mean Platelet Volume 9.5, Monocytes # (Auto) 1.1H, Monocytes (%) (Auto) 12, Neutrophils # (Auto) 6.7, Neutrophils (%) (Auto) 72, Phosphorus Level 4.0, Platelet Count 177, Potassium Level 3.7, Red Blood Count 4.43, Red Cell Distribution Width 14.4, Sodium Level 137, White Blood Count 9.3 12/04/16 11:37: Glucometer 141H Laboratory Tests 12/02/16 19:10 12/03/16 04:15 12/04/16 03:03 A/P: Assessment: NSTEMI - family and patient desires conservative tx Echo of 12/03/15: Normal LVEF (60-65%), mild AI, triv to mild MR and TR, PASP approx 35 mmHg, mild diastolic dysfunction HTN HLP Parkinson's DM - insulin requiring - medical services managing Mild dementia Plan: * I spoke with fam (2 daughter and one son). Plan is to continue conservative therapy * iv fluids today because oral intake has been low * Increase ambulation MAE RIVERA MD FACP FAC CCDS Dec 04, 2016 12:32
[2016-12-04] MEDS: ENOXAPARIN 40 MG/0.4 ML (LOVENOX) SYR SC SCH (13:53)
[2016-12-04 16:30] VITALS: BP 121/85
[2016-12-04 20:00] VITALS: BP 133/70
[2016-12-04] MEDS: POLYETHYLENE GLYCOL 17 GM (MIRALAX) PACK PO SCH (20:24)
[2016-12-04] MEDS: DONEPEZIL 10 MG (ARICEPT) TAB PO SCH (20:25)
[2016-12-04] MEDS: ATORVASTATIN 20 MG (LIPITOR) TABLET PO SCH (20:25)
[2016-12-05] VITALS: BP 121/65
[2016-12-05 04:00] VITALS: BP 126/60
[2016-12-05 04:30] LABS: BASOPHILS % (AUTO) 0 % (0-10); EOSINOPHILS # (AUTO) 0.2 10^3/uL (0.0-0.3); EOSINOPHILS % (AUTO) 2 % (0-10); LYMPHOCYTES # (AUTO) 1.6 X 10^3 (1.0-4.0); LYMPHOCYTES % (AUTO) 21 % (12-44); MEAN CORPUSCULAR HEMOGLOBIN 30 PG (25-34); MEAN CORPUSCULAR HGB CONC 33 G/DL (32-36); MEAN CORPUSCULAR VOLUME 91 FL (80-99); MEAN PLATELET VOLUME 9.6 FL (7.4-10.4); MONOCYTES # (AUTO) 0.7 X 10^3 (0.0-1.0); MONOCYTES % (AUTO) 9 % (0-12); NEUTROPHILS # (AUTO) 5.2 X 10^3 (1.8-7.8); NEUTROPHILS % (AUTO) 67 % (42-75); PLATELET COUNT 182 10^3/uL (130-400); RED BLOOD COUNT 4.21 10^6/uL (4.35-5.85); RED CELL DISTRIBUTION WIDTH 14.2 % (10.0-14.5); WHITE BLOOD COUNT 7.8 10^3/uL (4.3-11.0)
[2016-12-05 05:10] LABS: ANION GAP 10 MMOL/L (5-14); BLOOD UREA NITROGEN 20 MG/DL (7-18); BUN/CREATININE RATIO 30; CALCIUM 8.6 MG/DL (8.5-10.1); CARBON DIOXIDE 20 MMOL/L (21-32); CHLORIDE 107 MMOL/L (98-107); CREATININE SERUM 0.66 MG/DL (0.60-1.30); GFR ESTIMATED > 60; GLUCOSE 135 MG/DL (70-105); MAGNESIUM 1.6 MG/DL (1.8-2.4); PHOSPHORUS 3.7 MG/DL (2.3-4.7); POTASSIUM 4.1 MMOL/L (3.6-5.0); SODIUM 137 MMOL/L (135-145)
[2016-12-05] MEDS: CATHETER FLUSH 10 ML SYR IV SCH ×3 (06:00→21:03)
[2016-12-05] MEDS: inSUlin (REGULAR) HUMAN 1 UNIT/0.01 ML (CHARGE PER UNIT) SC SCH ×5 (06:00→20:51)
[2016-12-05] MEDS: TROSPIUM 20 MG (SANCTURA) TAB PO SCH ×2 (06:35→16:51)
[2016-12-05] MEDS: inSUlin DETERMIR 1 UNIT/0.01 ML (LEVEMIR) CHARGE PER UNIT SQ SCH ×2 (06:35→20:52)
[2016-12-05 07:59] VITALS: BP 134/60
[2016-12-05] MEDS: SINEMET 25/100 (CARBIDOPA/LEVODOPA) TAB PO SCH ×3 (08:04→20:51)
[2016-12-05] MEDS: CLOPIDOGREL 75 MG (PLAVIX) TABLET PO SCH (08:04)
[2016-12-05] MEDS: SPIRONOLACTONE 25 MG (ALDACTONE) TAB PO SCH (08:04)
[2016-12-05] MEDS: MEMANTINE 10 MG (NAMENDA) TABLET PO SCH ×2 (08:04→20:51)
[2016-12-05] MEDS: ASPIRIN 325 MG (5 GR) TABLET PO SCH (08:04)
--- NOTE | 2016-12-05 09:10 | Progress Note (SOAP) ---
Subjective Subjective/Events-last exam PT REPORTS THAT SHE IS FEELING OKAY - WHEN I APPROACHED PT AND ASKED HOW SHE WAS , SHE STATED, "I HAVE TO PEE". THE NURSING STAFF STATES THAT SHE HAS BEEN URINATING QUITE FREQUENTLY - WITH OVER 550 SINCE 0700. HER DAUGHTER REPORTS NO MORE COMPLAINTS OF CHEST PAIN. Review of Systems General: No Chills, FatigueNo Malaise HEENT: No Head Aches Pulmonary: No Dyspnea, No Cough Cardiovascular: No: Chest Pain, Edema, Palpitations Gastrointestinal: No: Abdominal Pain, Nausea Genitourinary: Frequency Neurological: : Weakness (CHRONIC) Objective Exam Vital Signs Date Time Temp Pulse Resp B/P Pulse Ox O2 Delivery O2 Flow Rate FiO2 12/05/16 08:00 Room Air 12/05/16 07:59 96.6 73 12 134/60 92 Room Air 12/05/16 07:00 66 12/05/16 04:00 Room Air 12/05/16 04:00 98.0 72 21 126/60 97 Room Air 12/05/16 01:00 70 12/05/16 00:00 97.6 73 23 121/65 96 Room Air 12/05/16 00:00 Room Air 12/04/16 20:00 84 24 133/70 Room Air 12/04/16 20:00 97.9 95 12/04/16 20:00 Room Air 12/04/16 19:00 73 12/04/16 16:30 97.0 68 17 121/85 93 Room Air 12/04/16 16:00 Room Air 12/04/16 13:00 68 12/04/16 12:02 97.9 65 22 110/56 92 Room Air 12/04/16 12:00 Room Air I & O 12/05/16 07:00 Intake Total 1190 ml Output Total 1200 ml Balance -10 ml Capillary Refill : Less Than 3 Seconds General Appearance: No Apparent Distress WD/WN HEENT: PERRL/EOMI Neck: Supple Respiratory: Chest Non Tender Lungs Clear Normal Breath Sounds No Accessory Muscle Use No Respiratory Distress Cardiovascular: Regular Rate, Rhythm No Edema Gastrointestinal: normal bowel sounds non tender soft no pulsatile mass Extremity: Normal Capillary Refill No Calf Tenderness No Pedal Edema Neurologic/Psychiatric: Alert Oriented x3 Normal Mood/Affect Skin: Warm/Dry Lymphatic: No Adenopathy Results Lab Laboratory Tests 12/04/16 11:37: Glucometer 141H 2/4/17 16:47: Glucometer 206H 12/04/16 20:26: Glucometer 189H 12/05/16 03:55: Anion Gap 10, BUN/Creatinine Ratio 30, Basophils # (Auto) 0.0, Basophils (%) ( Auto) 0, Blood Urea Nitrogen 20H, Calcium Level 8.6, Carbon Dioxide Level 20L, Chloride Level 107, Creatinine 0.66, Eosinophils # (Auto) 0.2, Eosinophils (%) ( Auto) 2, Estimat Glomerular Filtration Rate > 60, Glucose Level 135H, Hematocrit 38, Hemoglobin 12.4, Lymphocytes # (Auto) 1.6, Lymphocytes (%) (Auto ) 21, Magnesium Level 1.6L, Mean Corpuscular Hemoglobin 30, Mean Corpuscular Hemoglobin Concent 33, Mean Corpuscular Volume 91, Mean Platelet Volume 9.6, Monocytes # (Auto) 0.7, Monocytes (%) (Auto) 9, Neutrophils # (Auto) 5.2, Neutrophils (%) (Auto) 67, Phosphorus Level 3.7, Platelet Count 182, Potassium Level 4.1, Red Blood Count 4.21L, Red Cell Distribution Width 14.2, Sodium Level 137, White Blood Count 7.8 Assessment/Plan Assessment/Plan Assess & Plan/Chief Complaint NON-ST SD ELEVATED TROPONIN DIABETES MELLITUS HYPERTENSION HYPERLIPIDEMIA PARKINSON'S DISEASE GENERALIZED WEAKNESS NON-ST SD - ELEVATED TROPONIN - CONTINUE WITH PLANS FOR CONSERVATIVE TREATMENT WITH DR. RIVERA - PLAVIX, STATIN, MONITOR HEART RATE, BLOOD PRESSURES. DIABETES MELLITUS - RESTARTED HOME MEDS, ACCU CHECKS HYPERTENSION- RESTART HOME MEDS PARKINSON'S DISEASE - RESTART SINEMET GENERALIZED WEAKNESS TRANSFER DOWN TO 4TH FLOOR - WILL DISCHARGE TO [facility] TOMORROW Diagnosis/Problems: Clinical Quality Measures DVT/VTE Risk/Contraindication: Risk Factor Score Per Nursin RFS Level Per Nursing on Admit: 3=High MANUEL GAITAN MD Dec 05, 2016 09:10
[2016-12-05] MEDS: DORZOLAMIDE/TIMOLOL (COSOPT) 2-0.5% 10 ML BTL OU SCH ×2 (09:40→20:53)
[2016-12-05 11:59] VITALS: BP 109/55
[2016-12-05] MEDS: ENOXAPARIN 40 MG/0.4 ML (LOVENOX) SYR SC SCH (13:39)
--- NOTE | 2016-12-05 15:17 | Progress Note-Cardiology ---
Cardiology SOAP Progress Note Subjective: No cp or palp or syncope No shortness of breath at rest Objective: I&O/Vital Signs Vital Sign - Last 12Hours 12/05/16 12/05/16 12/05/16 12/05/16 04:00 04:00 07:00 07:59 Temp 98.0 96.6 Pulse 72 66 73 Resp 21 12 B/P 126/60 134/60 Pulse Ox 97 92 O2 Delivery Room Air Room Air Room Air 12/05/16 12/05/16 08:00 11:59 Temp 97.1 Pulse 63 Resp 20 B/P 109/55 Pulse Ox 93 O2 Delivery Room Air Room Air Intake and Output 12/05/16 00:00 Intake Total 940 ml Output Total 800 ml Balance 140 ml Weight (Pounds): 162 Weight (Ounces): 0.0 Weight (Calculated Kilograms): 73.788039 Constitutional: appears stated age well-developed well-nourished Respiratory: No accessory muscle use, No respiratory distress, chest expansion is symmetric chest is bilaterally symmetric lungs clear to auscultation Cardiovascular: regular rate-rhythmNo JVD, S1 and S2 Gastrointestional: No tender, soft roundNo spleenomegaly Extremities: No clubbing, No cyanosis, No significant edema Neurologic/Psychiatric: alert oriented x 3 other (poor historian) power is 5/ 5 both on sides Skin: No rash, No ulcerations Results/Procedures: Labs Laboratory Tests 12/04/16 16:47: Glucometer 206H 12/04/16 20:26: Glucometer 189H 12/05/16 03:55: Anion Gap 10, BUN/Creatinine Ratio 30, Basophils # (Auto) 0.0, Basophils (%) ( Auto) 0, Blood Urea Nitrogen 20H, Calcium Level 8.6, Carbon Dioxide Level 20L, Chloride Level 107, Creatinine 0.66, Eosinophils # (Auto) 0.2, Eosinophils (%) ( Auto) 2, Estimat Glomerular Filtration Rate > 60, Glucose Level 135H, Hematocrit 38, Hemoglobin 12.4, Lymphocytes # (Auto) 1.6, Lymphocytes (%) (Auto ) 21, Magnesium Level 1.6L, Mean Corpuscular Hemoglobin 30, Mean Corpuscular Hemoglobin Concent 33, Mean Corpuscular Volume 91, Mean Platelet Volume 9.6, Monocytes # (Auto) 0.7, Monocytes (%) (Auto) 9, Neutrophils # (Auto) 5.2, Neutrophils (%) (Auto) 67, Phosphorus Level 3.7, Platelet Count 182, Potassium Level 4.1, Red Blood Count 4.21L, Red Cell Distribution Width 14.2, Sodium Level 137, White Blood Count 7.8 12/05/16 11:11: Glucometer 172H Laboratory Tests 12/04/16 03:03 12/05/16 03:55 A/P: Assessment: NSTEMI - family and patient desires conservative tx Echo of 12/03/15: Normal LVEF (60-65%), mild AI, triv to mild MR and TR, PASP approx 35 mmHg, mild diastolic dysfunction HTN HLP Parkinson's DM - insulin requiring - Medical Service managing Mild dementia Mild hypomagnesemia Plan: * I spoke with fam (2 daughter and one son). Plan is to continue conservative therapy * iv fluids today because oral intake has been low * Increase ambulation MAE RIVERA MD FACP FAC CCDS Dec 05, 2016 15:17
[2016-12-05] MEDS ORDERED: MAGNESIUM 1 GM/100 ML IVPB 100 ML IV ONE (15:30)
[2016-12-05 16:00] VITALS: BP 124/59
[2016-12-05 20:04] VITALS: BP 147/70
[2016-12-05] MEDS: ATORVASTATIN 20 MG (LIPITOR) TABLET PO SCH (20:51)
[2016-12-05] MEDS: DONEPEZIL 10 MG (ARICEPT) TAB PO SCH (20:51)
[2016-12-05] MEDS: POLYETHYLENE GLYCOL 17 GM (MIRALAX) PACK PO SCH (20:52)
--- NOTE | 2016-12-05 23:53 | ECHOCARDIOGRAPHY REPORT ---
PROCEDURE PHYSICIAN: MAE BECERRA DATE OF PROCEDURE: 12/03/2016 TWO DIMENSIONAL ECHOCARDIOGRAM REPORT PRIMARY PHYSICIAN: Dr. Reddy OTHER PHYSICIAN: Dr. Becerra REFERRING PHYSICIAN: ORDERING PHYSICIAN: Kelle Cotter APRN INDICATION FOR THE PROCEDURE: Acute non-ST elevation myocardial infarction. MEASUREMENTS DERIVED VALUES LV DIAMETER (LAX) NORMALS NORMALS Diastolic 3.9 (3.6-5.2) Eject. Fract. (60%+/-6%) Systolic (2.3-3.9) Diastolic Vol. % Shortening (0.22-0.42) Systolic Vol. Aortic Root 2.9 IVS THICKNESS Diastolic 1.3 (0.6-1.1) LVPW THICKNESS Diastolic 1.2 (0.6-1.1) LA DIAMETER Systolic 3.5 (2.1-3.7) DESCRIPTION: Two-dimensional echocardiography showed normal global left ventricular systolic function with normal regional wall motion. Aortic, mitral and tricuspid valve leaflets show good leaflet excursion. There is no significant pericardial effusion. There appears to mild mitral annular calcification and mild aortic valve sclerosis. Doppler imaging shows trivial to mild tricuspid regurgitation. Pulmonary artery systolic pressure is estimated to be 35 mmHg. There is mild aortic regurgitation. There is no Doppler evidence of any significant valvular stenosis. Mitral inflow is consistent with grade 1 diastolic dysfunction of the left ventricle. There is no evidence of significant intracardiac shunt on this transthoracic echocardiographic study. Inferior vena cava appears mostly collapsed during this study. CONCLUSION: 1. Normal global left ventricular systolic function with an ejection fraction of approximately 60 to 65%. 2. Mild aortic valve sclerosis and mitral annular calcification without evidence of significant valvular stenosis. 3. Trivial tricuspid regurgitation. 4. Mild aortic regurgitation. 5. Pulmonary artery systolic pressure is estimated to be approximately 35 mmHg. 6. Mild diastolic dysfunction of the left ventricle. 7. Mild concentric left ventricular hypertrophy. Job ID: [id number] Dictated Date: 12/05/2016 16:09:43 Sba Underwriter Date: 12/05/2016 23:46:53 / susy
[2016-12-06] VITALS: BP 123/62
[2016-12-06 04:20] VITALS: BP 122/74
[2016-12-06 05:50] LABS: BASOPHILS % (AUTO) 0 % (0-10); EOSINOPHILS # (AUTO) 0.2 10^3/uL (0.0-0.3); EOSINOPHILS % (AUTO) 3 % (0-10); LYMPHOCYTES # (AUTO) 1.6 X 10^3 (1.0-4.0); LYMPHOCYTES % (AUTO) 21 % (12-44); MEAN CORPUSCULAR HEMOGLOBIN 29 PG (25-34); MEAN CORPUSCULAR HGB CONC 33 G/DL (32-36); MEAN CORPUSCULAR VOLUME 90 FL (80-99); MEAN PLATELET VOLUME 9.4 FL (7.4-10.4); MONOCYTES # (AUTO) 0.7 X 10^3 (0.0-1.0); MONOCYTES % (AUTO) 10 % (0-12); NEUTROPHILS # (AUTO) 5.1 X 10^3 (1.8-7.8); NEUTROPHILS % (AUTO) 66 % (42-75); PLATELET COUNT 201 10^3/uL (130-400); RED BLOOD COUNT 4.19 10^6/uL (4.35-5.85); RED CELL DISTRIBUTION WIDTH 14.1 % (10.0-14.5); WHITE BLOOD COUNT 7.7 10^3/uL (4.3-11.0)
[2016-12-06] MEDS: inSUlin (REGULAR) HUMAN 1 UNIT/0.01 ML (CHARGE PER UNIT) SC SCH ×2 (06:00→11:00)
[2016-12-06 06:13] LABS: ANION GAP 9 MMOL/L (5-14); BLOOD UREA NITROGEN 13 MG/DL (7-18); BUN/CREATININE RATIO 21; CALCIUM 8.9 MG/DL (8.5-10.1); CARBON DIOXIDE 24 MMOL/L (21-32); CHLORIDE 106 MMOL/L (98-107); CREATININE SERUM 0.62 MG/DL (0.60-1.30); GFR ESTIMATED > 60; GLUCOSE 104 MG/DL (70-105); MAGNESIUM 1.5 MG/DL (1.8-2.4); POTASSIUM 4.1 MMOL/L (3.6-5.0); SODIUM 139 MMOL/L (135-145)
[2016-12-06] MEDS: CATHETER FLUSH 10 ML SYR IV SCH (06:29)
[2016-12-06] MEDS: TROSPIUM 20 MG (SANCTURA) TAB PO SCH (06:29)
[2016-12-06] MEDS: inSUlin DETERMIR 1 UNIT/0.01 ML (LEVEMIR) CHARGE PER UNIT SQ SCH (06:50)
[2016-12-06 08:00] VITALS: BP 117/73
[2016-12-06] MEDS: SINEMET 25/100 (CARBIDOPA/LEVODOPA) TAB PO SCH (08:16)
[2016-12-06] MEDS: MEMANTINE 10 MG (NAMENDA) TABLET PO SCH (08:16)
[2016-12-06] MEDS: ASPIRIN 325 MG (5 GR) TABLET PO SCH (08:16)
[2016-12-06] MEDS: CLOPIDOGREL 75 MG (PLAVIX) TABLET PO SCH (08:16)
[2016-12-06] MEDS: SPIRONOLACTONE 25 MG (ALDACTONE) TAB PO SCH (08:17)
[2016-12-06] MEDS: DORZOLAMIDE/TIMOLOL (COSOPT) 2-0.5% 10 ML BTL OU SCH (09:31)
[2016-12-06] MEDS ORDERED: METO-270 PO (10:02)
[2016-12-06] MEDS ORDERED: CLOP75TA28 PO (10:02)
[2016-12-06] MEDS ORDERED: ATOR20TA66 PO (10:02)
[2016-12-06] MEDS ORDERED: ASPI-586 PO (10:02)
[2016-12-06] MEDS: MAGNESIUM 1 GM/100 ML IVPB 100 ML IV SCH ×2 (10:21→11:27)
[2016-12-06] MEDS ORDERED: NITR0.4T SL (10:37)
[2016-12-06] MEDS ORDERED: MAGN400T6 PO (10:37)
--- NOTE | 2016-12-06 10:41 | Discharge Inst-Skilled Nursing ---
Discharge Inst-Skilled NF Patient Instructions Patient Problems: myocardial infarction hypertension weakness parkinsons disease diabetes mellitus hyperlipidemia Consult/Follow Up/Orders Skilled NF Admit to: [facility] Certification (SNF) I certify that SNF services are required to be given on an inpatient basis because of the above named patient's need for half-way care on a continuing basis for the conditions(s) for which he/she was receiving inpatient hospital services prior to his/her transfer to the SNF. Long Term Facility Order: Nursing Services, [facility]-Evaluate & Treat, Physical Therapy-Evaluate & Treat, Speech Language-Evaluate & Treat Discharge Diet: Regular Diet Daily Activity as Tolerated: Yes New & Resume Previous Orders New & Resume Previous Orders resume previous glucose checking, resume physical therapy, occ therapy, speech therapy, resume previous orders from [facility] Manuel Reddy Dec 06, 2016 10:39 Pneu Vac Indicated: Yes MANUEL REDDY MD Dec 06, 2016 10:41
--- NOTE | 2016-12-06 10:43 | Discharge Summary ---
Diagnosis/Chief Complaint Date of Admission Dec 02, 2016 at 20:25 Date of Discharge Discharge Date: Dec 06, 2016 Discharge Time: 1040 Admission Diagnosis Admission Diagnosis NON-ST [place] ELEVATED TROPONIN DIABETES MELLITUS HYPERTENSION HYPERLIPIDEMIA PARKINSON'S DISEASE GENERALIZED WEAKNESS Discharge Diagnosis NON-ST [place] ELEVATED TROPONIN DIABETES MELLITUS HYPERTENSION HYPERLIPIDEMIA PARKINSON'S DISEASE GENERALIZED WEAKNESS Reason Hospital Visit PT IS A 81 Y/O FEMALE WHO IS KNOWN TO ME FROM CLINIC. SHE HAS RECENTLY BEEN HOSPITALIZED, WAS DISCHARGED TO THE [facility] WHERE HER DAUGHTER WORKS AND HAS BEEN DOING WELL UNTIL THIS PAST WEEKEND WHEN SHE HAD CHEST PAIN. THE FACILITY CALLED DR. CAMPUZANO, HE ADVISED SENDING HER TO THE EMERGENCY DEPARTMENT LAST TUESDAY - BUT THE PT WAS FEELING BETTER AND THE PT AND FAMILY DECIDED NOT TO TRANSPORT PT TO THE HOSPITAL. THE PATIENT HAD INTERMITTENT CHEST PAIN DURING THE WEEK LAST WEEK, BUT THEN HAD AN ACUTE EPISODE ON TUESDAY - LABS WERE ORDERED AND THE TROPONIN SHOWED AN ELEVATION IN THE 4 RANGE, SHE WAS TRANSPORTED TO [facility] EM[facility]GENC[facility] DEPT AND HER TROPONIN HAD INCREASED UP TO 5. DR. SAEZ WAS CONSULTED AND HE DISCUSSED WITH FAMILY THE PLAN FOR CATHETERIZATION VERSUS CONSERVATIVE TREATMENT. THIS MORNING THE PT DENIES CHEST PAIN, NAUSEA, ABDOMINAL PAIN. Discharge Summary Consultations luna saez md Discharge Physical Examination Allergies: Coded Allergies: No Allergy Information Available (Unverified , 10/30/16) Vitals & I&Os Vital Signs Date Time Temp Pulse Resp B/P Pulse Ox O2 Delivery O2 Flow Rate FiO2 12/06/16 08:25 Room Air 12/06/16 08:00 96.8 71 20 117/73 92 12/02/16 21:10 2.00 General Appearance: Alert, Cooperative, No Acute Distress HEENT: Atraumatic, PERRLA Respiratory: Clear to Auscultation Cardiovascular: Regular Rate Abdominal: Normal Bowel Sounds, Soft Extremities: No Clubbing Skin: No Rashes Psych/Mental Status: Mental Status NL, Other (LABILE MOOD) Hospital Course NON-ST [place] ELEVATED TROPONIN DIABETES MELLITUS HYPERTENSION HYPERLIPIDEMIA PARKINSON'S DISEASE GENERALIZED WEAKNESS NON-ST OK - ELEVATED TROPONIN - CONTINUE WITH PLANS FOR CONSERVATIVE TREATMENT WITH DR. SAEZ - PLAVIX, STATIN, MONITOR HEART RATE, BLOOD PRESSURES. DIABETES MELLITUS - RESTARTED HOME MEDS, ACCU CHECKS HYPERTENSION- RESTART HOME MEDS PARKINSON'S DISEASE - RESTART SINEMET GENERALIZED WEAKNESS TRANSFER DOWN TO 4TH FLOOR - WILL DISCHARGE TO [facility] TODAY Pending Labs Laboratory Tests 12/06/16 05:40: Anion Gap 9, BUN/Creatinine Ratio 21, Basophils # (Auto) 0.0, Basophils (%) ( Auto) 0, Blood Urea Nitrogen 13, Calcium Level 8.9, Carbon Dioxide Level 24, Chloride Level 106, Creatinine 0.62, Eosinophils # (Auto) 0.2, Eosinophils (%) ( Auto) 3, Estimat Glomerular Filtration Rate > 60, Glucose Level 104, Hematocrit 38, Hemoglobin 12.3, Lymphocytes # (Auto) 1.6, Lymphocytes (%) (Auto) 21, Magnesium Level 1.5, Mean Corpuscular Hemoglobin 29, Mean Corpuscular Hemoglobin Concent 33, Mean Corpuscular Volume 90, Mean Platelet Volume 9.4, Monocytes # (Auto) 0.7, Monocytes (%) (Auto) 10, Neutrophils # (Auto) 5.1, Neutrophils (%) (Auto) 66, Platelet Count 201, Potassium Level 4.1, Red Blood Count 4.19, Red Cell Distribution Width 14.1, Sodium Level 139, White Blood Count 7.7 Discharge Condition at discharge IMPROVED Instructions to patient/family Please see electonic discharge instructions given to patient. Discharge Medications Reviewed and agree with Discharge Medication list on patient's Discharge Instruction sheet Clinical Quality Measures DVT/VTE Risk/Contraindication: Risk Factor Score Per Nursin RFS Level Per Nursing on Admit: 3=High MANUEL GAITAN MD Dec 06, 2016 10:43
--- NOTE | 2016-12-06 11:55 | Progress Note-Cardiology ---
Cardiology SOAP Progress Note Subjective: No c/o CP, dyspnea, palpitations. Daughter at the bedside. Objective: I&O/Vital Signs Vital Sign - Last 12Hours 12/06/16 12/06/16 12/06/16 12/06/16 08:00 08:25 11:45 12:00 Temp 96.8 97.1 Pulse 71 60 Resp 20 20 B/P 117/73 114/73 Pulse Ox 92 92 O2 Delivery Room Air Room Air Room Air Room Air 12/06/16 13:05 B/P Intake and Output 12/06/16 00:00 Intake Total 1605 ml Output Total 500 ml Balance 1105 ml Weight (Pounds): 168 Weight (Ounces): 7.0 Weight (Calculated Kilograms): 76.481516 Constitutional: appears stated age well-developed well-nourished Respiratory: No accessory muscle use, No respiratory distress, chest expansion is symmetric chest is bilaterally symmetric lungs clear to auscultation Cardiovascular: regular rate-rhythmNo JVD, S1 and S2 Gastrointestional: No tender, soft roundNo spleenomegaly Extremities: No clubbing, No cyanosis, No significant edema Neurologic/Psychiatric: alert oriented x 3 other (poor historian) power is 5/ 5 both on sides Skin: No rash, No ulcerations Results/Procedures: Labs Laboratory Tests 12/05/16 20:16: Glucometer 238H 12/06/16 05:40: Anion Gap 9, BUN/Creatinine Ratio 21, Basophils # (Auto) 0.0, Basophils (%) ( Auto) 0, Blood Urea Nitrogen 13, Calcium Level 8.9, Carbon Dioxide Level 24, Chloride Level 106, Creatinine 0.62, Eosinophils # (Auto) 0.2, Eosinophils (%) ( Auto) 3, Estimat Glomerular Filtration Rate > 60, Glucose Level 104, Hematocrit 38, Hemoglobin 12.3, Lymphocytes # (Auto) 1.6, Lymphocytes (%) (Auto) 21, Magnesium Level 1.5L, Mean Corpuscular Hemoglobin 29, Mean Corpuscular Hemoglobin Concent 33, Mean Corpuscular Volume 90, Mean Platelet Volume 9.4, Monocytes # (Auto) 0.7, Monocytes (%) (Auto) 10, Neutrophils # (Auto) 5.1, Neutrophils (%) (Auto) 66, Platelet Count 201, Potassium Level 4.1, Red Blood Count 4.19L, Red Cell Distribution Width 14.1, Sodium Level 139, White Blood Count 7.7 12/06/16 11:19: Glucometer 182H A/P: Assessment: NSTEMI - family and patient desires conservative tx Echo of 12/03/15: Normal LVEF (60-65%), mild AI, triv to mild MR and TR, PASP approx 35 mmHg, mild diastolic dysfunction HTN HLP Parkinson's DM - insulin requiring - Medical Service managing Mild dementia Mild hypomagnesemia - replace Plan: * OK to discharge back to LTC facility * Continue current medications including statin, ASA, Plavix and BB * Add PRN nitro sublingual * Replace Mag * Out pt lab * Cardiac status and medications discussed with daughter * Out pt f/u in 2 weeks * Cardiac status clinically stable * Continue conservative management per pt and family wishes Physician Assessment Physician Assessment Lungs: clear Cor: reg A&R * As documented in our note above * I spoke with her and her daughter and answered questions * Outpatient f/u is advised EDWARDO CHOWDHURY Dec 06, 2016 11:55 MAE RIVERA MD FACP FAC CCDS Dec 06, 2016 17:05 * Cardiac status clinically stable * Continue conservative management per pt and family wishes EDWARDO CHOWDHURY Dec 06, 2016 11:55
[2016-12-06 12:00] VITALS: BP 114/73
== END 2016-12-06 13:05 | DRG 282 ==
LOC: EDUNIT# 18:52 → ER 18:53 → ICU 20:25 → 4TH 12-05 10:20
PROVIDERS: ADMIT Family Medicine; ATTEND Family Medicine
DX: I21.4 Non-ST elevation (NSTEMI) myocardial infarction (principal); I10 Essential (primary) hypertension; E83.42 Hypomagnesemia; J44.9 Chronic obstructive pulmonary disease, unspecified; G30.9 Alzheimer's disease, unspecified; F02.80 Dementia in other diseases classified elsewhere, unspecified severity, without behavioral disturbance, psychotic disturbance, mood disturbance, and anxiety; E78.5 Hyperlipidemia, unspecified; Z66 Do not resuscitate; E11.9 Type 2 diabetes mellitus without complications; G20 Parkinson's disease; I08.3 Combined rheumatic disorders of mitral, aortic and tricuspid valves; H40.9 Unspecified glaucoma; K59.09 Other constipation; M19.91 Primary osteoarthritis, unspecified site; Z79.4 Long term (current) use of insulin
CPT/HCPCS: 36415; 71010; 80048; 80053; 80061; 82550; 82962; 83735; 83874; 83880; 84100; 84484; 85025; 85027; 85610; 85730; 86141; 93005; 93041; 93306; 96372